=== PATIENT | male | born 1955 | race Caucasian/White ===

== ENCOUNTER → 2018-02-23 08:08 | Outpatient (CLI) | payer OTHER, SELFPAY ==
[2018-02-23 09:38] LABS: Anion Gap 6 (5-15); BUN 22 mg/dL (7-18); BUN/Creat Ratio 20.4 RATIO (10-20); Calcium,Total 8.4 mg/dL (8.5-10.1); Chloride 109 mmol/L (98-107); Cholesterol 210 mg/dL (200); Creatinine, Serum 1.08 mg/dL (0.70-1.30); EST Glomerular Filtration Rate 73 mL/min (>60); Est Glom Filt Rate - Afr Amer 88 mL/min (>60); Glucose 130 mg/dL (74-106); High Density Lipoprotein 43 mg/dL; PSA,Total - Annual Screen 1.96 ng/mL (0.00-4.00); Sodium Level 142 mmol/L (136-145); Triglycerides 120 mg/dL; Very Low Density Lipoprotein 24 mg/dL (5-40)
[2018-02-23 09:51] LABS: Hemoglobin A1c 6.7 % (4.2-6.3)
== END ==
PROVIDERS: Family Provider Family Medicine; PCP Family Medicine; Visit Provider Family Medicine
DX: E11.9 Type 2 diabetes mellitus without complications (principal); E78.00 Pure hypercholesterolemia, unspecified; Z12.5 Encounter for screening for malignant neoplasm of prostate
CPT/HCPCS: 36415; 80048; 80061; 83036; 84153; G0103

== ENCOUNTER → 2018-08-02 10:35 | Outpatient (CLI) | payer OTHER, SELFPAY ==
--- NOTE | 2018-08-02 10:35 | COLBX_PTH ---
PATIENT: YVAN ACUÑA LOC: [facility] U#:[id number] AGE/SX: 70/M ROOM: RE08/02/[address]: Dr. Eddie Hester MD : 1955 BED: DIS: SPEC #: [id number] RECD: 08/02/18 15:29 STATUS: DANITZA REJacinda #: [id number] DAVIN: 08/02/18 10:[address]: Eddie Hester DEPT: SURGICAL PATHOLOGY RECD BY: Bhavesh Carranza ENTERED: 08/05/18 10:28 SP TYPE: COLON BX OTHR DR: Dr. Donovan Fang MD [facility] Tissues: Rectum, NOS Procedures: Surgery Specimen Level IV HEADER OPERATION: Colonoscopy with polypectomy PRE-OP DIAGNOSIS: Screening colonoscopy TISSUE SUBMITTED: Rectal polyp, rule out adenoma MICROSCOPIC DIAGNOSIS Rectal polyp, biopsy: Tubular adenoma. AM:car 08/06/18 MICROSCOPIC DESCRIPTION Slides are reviewed. GROSS DESCRIPTION Received in fixative is one container labeled with the patient's name and designated rectal polyp. The specimen consists of one irregular fragment of light orantes soft tissue that measures 0.4 x 0.3 x 0.1 cm. The specimen is totally submitted in one cassette. / SJ:car 08/05/18 TC:5 CPT: 33086
== END ==
PROVIDERS: Family Provider Family Medicine; PCP Family Medicine; Visit Provider Internal Medicine Gastroenterology
DX: K62.1 Rectal polyp (principal)
CPT/HCPCS: 88305

== ENCOUNTER → 2018-08-24 07:09 | Outpatient (CLI) | payer OTHER, SELFPAY ==
[2018-08-24 09:14] LABS: Anion Gap 5 (5-15); BUN 16 mg/dL (7-18); BUN/Creat Ratio 15.5 RATIO (10-20); Calcium,Total 8.4 mg/dL (8.5-10.1); Chloride 107 mmol/L (98-107); Cholesterol 195 mg/dL (200); Creatinine, Serum 1.03 mg/dL (0.70-1.30); EST Glomerular Filtration Rate 77 mL/min (>60); Est Glom Filt Rate - Afr Amer 93 mL/min (>60); Glucose 136 mg/dL (74-106); High Density Lipoprotein 37 mg/dL; Potassium 3.9 mmol/L (3.5-5.1); Sodium Level 139 mmol/L (136-145); Triglycerides 145 mg/dL; Very Low Density Lipoprotein 29 mg/dL (5-40)
[2018-08-24 09:21] LABS: Hemoglobin A1c 6.3 % (4.2-6.3)
== END ==
PROVIDERS: Family Provider Family Medicine; PCP Family Medicine; Referring Provider Family Medicine; Visit Provider Family Medicine
DX: E11.9 Type 2 diabetes mellitus without complications (principal); E78.00 Pure hypercholesterolemia, unspecified
CPT/HCPCS: 36415; 80048; 80061; 83036

== ENCOUNTER → 2019-02-21 05:56 | Outpatient (CLI) | payer OTHER, SELFPAY | PROVIDERS: Family Provider Family Medicine; PCP Family Medicine; Visit Provider Family Medicine | DX: E11.9 Type 2 diabetes mellitus without complications (principal); Z12.5 Encounter for screening for malignant neoplasm of prostate ==

== ENCOUNTER → 2019-03-01 07:40 | Outpatient (CLI) | payer OTHER, SELFPAY ==
[2019-03-01 08:34] LABS: Cholesterol 190 mg/dL (200); Glucose 136 mg/dL (74-106); High Density Lipoprotein 46 mg/dL; PSA,Total - Annual Screen 2.41 ng/mL (0.00-4.00); Triglycerides 100 mg/dL; Very Low Density Lipoprotein 20 mg/dL (5-40)
[2019-03-01 08:57] LABS: Hemoglobin A1c 7.4 % (4.2-6.3)
== END ==
PROVIDERS: Family Provider Family Medicine; PCP Family Medicine; Referring Provider Family Medicine; Visit Provider Family Medicine
DX: E11.9 Type 2 diabetes mellitus without complications (principal); Z12.5 Encounter for screening for malignant neoplasm of prostate
CPT/HCPCS: 36415; 80061; 82947; 83036; 84153; G0103

== ENCOUNTER → 2020-05-31 07:23 | Outpatient (CLI) | payer OTHER, SELFPAY ==
[2020-05-31 08:47] LABS: Microalbumin,Random Urine 12.4 mg/L (NO RANGE EST.); Microalbumin:Creatinine Ratio 7.1 mg/g CRE (<30 mg/g CRE)
[2020-05-31 08:52] LABS: Hemoglobin A1c 8.4 % (3.8-5.6)
[2020-05-31 09:01] LABS: ALB/GLOB Ratio 1.4 RATIO (0.9-2.4); AST(SGOT) 24 U/L (15-37); Alanine Aminotransfer ALT/SGPT 30 U/L (16-61); Albumin, Serum 3.8 g/dL (3.2-5.0); Alkaline Phosphatase 59 U/L (45-117); Anion Gap 5 (5-15); BUN 28 mg/dL (7-18); BUN/Creat Ratio 25.7 RATIO (10-20); Calcium,Total 8.4 mg/dL (8.5-10.1); Chloride 102 mmol/L (98-107); Cholesterol 192 mg/dL (200); Creatinine, Serum 1.09 mg/dL (0.70-1.30); EST Glomerular Filtration Rate 72 mL/min (>60); Est Glom Filt Rate - Afr Amer 87 mL/min (>60); Globulin 2.8 g/dL (2.2-4.2); Glucose 184 mg/dL (74-106); High Density Lipoprotein 53 mg/dL; PSA,Total - Annual Screen 2.24 ng/mL (0.00-4.00); Potassium 3.7 mmol/L (3.5-5.1); Protein, Total 6.6 g/dL (6.4-8.2); Sodium Level 135 mmol/L (136-145); Triglycerides 89 mg/dL; Very Low Density Lipoprotein 18 mg/dL (5-40)
== END ==
PROVIDERS: PCP Family Medicine; Referring Provider Family Medicine; Visit Provider Family Medicine
DX: E11.9 Type 2 diabetes mellitus without complications (principal); Z12.5 Encounter for screening for malignant neoplasm of prostate
CPT/HCPCS: 36415; 80053; 80061; 82043; 82570; 83036; 84153; G0103

== ENCOUNTER → 2020-11-16 15:13 | Outpatient (CLI) | payer OTHER, SELFPAY | PROVIDERS: PCP Family Medicine; Referring Provider Otolaryngology Otolaryngology/Facial Plastic Surgery; Visit Provider Otolaryngology Otolaryngology/Facial Plastic Surgery | DX: J32.9 Chronic sinusitis, unspecified (principal) | CPT/HCPCS: 87070; 87205 ==

== ENCOUNTER → 2021-06-08 07:33 | Outpatient (CLI) | payer OTHER, SELFPAY ==
[2021-06-08 07:54] LABS: Absolute Lymphocyte Count 2.21 X10^3/uL (0.83-4.51); Absolute Neutrophil Count 2.8 X10^3/uL (2.0-7.7); Basophil# 0.04 X10^3/uL; Basophil% 0.7 % (0-1); Eosinophil# 0.28 X10^3/uL; Eosinophils% 4.7 % (0-5); Hematocrit 46.2 % (40-54); Hemoglobin 15.8 g/dL (13.0-16.5); Lymphocyte # 2.21 X10^3/ul (0.83-4.51); Mean Corp Hgb Conc 34.2 g/dL (32-36); Mean Corpuscular Hgb 30.1 pg (27.0-32.0); Mean Platelet Vol. 10.4 fl (6.2-12.0); Monocyte# 0.65 X10^3/uL; Monocyte% 10.9 % (0-10); NRBC Flagged by Analyzer 0 % (0-5); Neutrophil # 2.76 X10^3/uL (2.7-7.7); Neutrophil % 46.2 % (47-70); Platelet Count 179 K/mm3 (150-450); RBC Distribution Width CV 12.4 % (11.6-14.6); RBC Distribution Width SD 40.2 fl (35.1-43.9); Red Blood Count 5.25 M/mm3 (4.6-6.2)
[2021-06-08 08:20] LABS: Microalbumin,Random Urine 9.7 mg/L (NO RANGE EST.); Microalbumin:Creatinine Ratio 9.2 mg/g CRE (<30 mg/g CRE)
[2021-06-08 08:26] LABS: AST(SGOT) 32 U/L (15-37); Alanine Aminotransfer ALT/SGPT 28 U/L (16-61); Albumin, Serum 3.6 g/dL (3.2-5.0); Alkaline Phosphatase 61 U/L (45-117); Anion Gap 7 (5-15); BUN 28 mg/dL (7-18); BUN/Creat Ratio 28.6 RATIO (10-20); Calcium,Total 8.4 mg/dL (8.5-10.1); Chloride 107 mmol/L (98-107); Creatinine, Serum 0.98 mg/dL (0.70-1.30); EST Glomerular Filtration Rate 81 mL/min (>60); Est Glom Filt Rate - Afr Amer 98 mL/min (>60); Globulin 3.6 g/dL (2.2-4.2); Glucose 138 mg/dL (74-106); PSA,Total - Annual Screen 2.65 ng/mL (0.00-4.00); Potassium 3.9 mmol/L (3.5-5.1); Protein, Total 7.2 g/dL (6.4-8.2); Sodium Level 137 mmol/L (136-145)
[2021-06-08 08:29] LABS: Hemoglobin A1c 8.7 % (3.8-5.6)
[2021-06-08 08:49] LABS: Vitamin B12 502 pg/mL (211-911)
== END ==
PROVIDERS: PCP Family Medicine; Referring Provider Family Medicine; Visit Provider Family Medicine
DX: E11.65 Type 2 diabetes mellitus with hyperglycemia (principal); Z12.5 Encounter for screening for malignant neoplasm of prostate
CPT/HCPCS: 36415; 80053; 82043; 82570; 82607; 83036; 84153; 85025; G0103

== ENCOUNTER → 2021-09-21 08:45 | Outpatient (CLI) | payer OTHER, SELFPAY ==
[2021-09-21 11:25] LABS: Anion Gap 5 (5-15); BUN 35 mg/dL (7-18); BUN/Creat Ratio 32.4 RATIO (10-20); Calcium,Total 9.2 mg/dL (8.5-10.1); Chloride 108 mmol/L (98-107); Cholesterol 248 mg/dL (200); Creatinine, Serum 1.08 mg/dL (0.70-1.30); EST Glomerular Filtration Rate 72 mL/min (>60); Est Glom Filt Rate - Afr Amer 87 mL/min (>60); Glucose 129 mg/dL (74-106); High Density Lipoprotein 50 mg/dL; Potassium 4.3 mmol/L (3.5-5.1); Sodium Level 140 mmol/L (136-145); Triglycerides 136 mg/dL; Very Low Density Lipoprotein 27 mg/dL (5-40)
== END ==
PROVIDERS: PCP Family Medicine; Referring Provider Family Medicine; Visit Provider Family Medicine
DX: E11.65 Type 2 diabetes mellitus with hyperglycemia (principal)
CPT/HCPCS: 36415; 80048; 80061

== ENCOUNTER 2021-12-28 07:08 | Outpatient (CLI) | payer OTHER, SELFPAY ==
[2021-12-28 07:52] LABS: Microalbumin,Random Urine 9.1 mg/L (NO RANGE EST.); Microalbumin:Creatinine Ratio 8.2 mg/g CRE (<30 mg/g CRE)
[2021-12-28 07:56] LABS: ALB/GLOB Ratio 1.2 RATIO (0.9-2.4); AST(SGOT) 17 U/L (15-37); Alanine Aminotransfer ALT/SGPT 22 U/L (16-61); Albumin, Serum 3.7 g/dL (3.2-5.0); Alkaline Phosphatase 47 U/L (45-117); Anion Gap 6 (5-15); BUN 27 mg/dL (7-18); BUN/Creat Ratio 23.7 RATIO (10-20); Calcium,Total 8.5 mg/dL (8.5-10.1); Chloride 106 mmol/L (98-107); Cholesterol 218 mg/dL (200); Creatinine, Serum 1.14 mg/dL (0.70-1.30); EST Glomerular Filtration Rate 68 mL/min (>60); Est Glom Filt Rate - Afr Amer 82 mL/min (>60); Globulin 3.2 g/dL (2.2-4.2); Glucose 103 mg/dL (74-106); High Density Lipoprotein 53 mg/dL; Potassium 4.2 mmol/L (3.5-5.1); Protein, Total 6.9 g/dL (6.4-8.2); Sodium Level 139 mmol/L (136-145); Triglycerides 93 mg/dL; Very Low Density Lipoprotein 19 mg/dL (5-40)
[2021-12-28 08:21] LABS: Hemoglobin A1c 6.2 % (3.8-5.6)
== END 2021-12-28 23:59 | disposition home or self-care (01) ==
LOC: LAB 07:09
PROVIDERS: PCP Family Medicine; Referring Provider Family Medicine; Visit Provider Family Medicine
DX: Z00.00 Encounter for general adult medical examination without abnormal findings (principal)
CPT/HCPCS: 36415; 80053; 80061; 82043; 82570; 83036

== ENCOUNTER → 2022-10-03 | Outpatient (CLI) | payer OTHER, SELFPAY ==
--- NOTE | 2022-10-03 07:15 | US_ITS ---
EXAM: US ABDOMEN COMPLETE CLINICAL INDICATION: PANCREATIC MASS - imaging done at outside facility in [place]. No comps available TECHNIQUE: Real-time ultrasound of the abdomen with image documentation. This report was created using [facility] report generation technology. COMPARISON: None. FINDINGS: LIVER: Normal. There is normal echotexture. No focal hepatic lesion. No intrahepatic biliary ductal dilation. GALLBLADDER: The 2.2 cm stone noted within the gallbladder. No gallbladder wall thickening is demonstrated. No pericholecystic fluid. Negative sonographic Mak''s sign. COMMON BILE DUCT: Unremarkable as visualized. The proximal common bile duct is within normal limits for the patient''s age. PANCREAS: Pancreas is obscured by overlying bowel gas. KIDNEYS: Small bilateral renal cysts. There is no hydronephrosis. No shadowing calculus. SPLEEN: Normal. The spleen is normal in size and homogeneous in echotexture. AORTA: Normal. Submitted longitudinal images of the intra-abdominal aorta demonstrate no gross abnormalities and are unremarkable. INFERIOR VENA CAVA: Normal. The IVC is patent. FREE FLUID: There is no free fluid. US/Abdomen Complete IMPRESSION: 1. Cholelithiasis. 2. Pancreas not well seen. Recommend additional CT or MRI imaging for further evaluation. Electronically Signed: Elvin Damon MD at 8:47 EST ,
== END | disposition home or self-care (01) ==
LOC: US 07:14
PROVIDERS: PCP Family Medicine; Referring Provider Family Medicine; Visit Provider Family Medicine
DX: K86.89 Other specified diseases of pancreas (principal)
CPT/HCPCS: 76700

== ENCOUNTER → 2023-02-28 | Outpatient (CLI) | payer OTHER, SELFPAY ==
[2023-02-28 08:58] LABS: Anion Gap 4 (5-15); BUN 21 mg/dL (7-18); BUN/Creat Ratio 23.3 RATIO (10-20); Calcium,Total 8.4 mg/dL (8.5-10.1); Chloride 110 mmol/L (98-107); Cholesterol 162 mg/dL (200); EST Glomerular Filtration Rate 88 mL/min (>60); Est Glom Filt Rate - Afr Amer 107 mL/min (>60); Glucose 104 mg/dL (74-106); High Density Lipoprotein 45 mg/dL; Potassium 3.7 mmol/L (3.5-5.1); Sodium Level 138 mmol/L (136-145); Triglycerides 108 mg/dL; Very Low Density Lipoprotein 22 mg/dL (5-40)
[2023-02-28 09:14] LABS: Microalbumin,Random Urine 9.8 mg/L (NO RANGE EST.)
== END | disposition home or self-care (01) ==
PROVIDERS: PCP Family Medicine; Referring Provider Family Medicine; Visit Provider Family Medicine
DX: E11.65 Type 2 diabetes mellitus with hyperglycemia (principal)
CPT/HCPCS: 36415; 80048; 80061; 82043

== ENCOUNTER → 2023-09-22 | Outpatient (CLI) | payer OTHER, SELFPAY ==
[2023-09-22 11:02] LABS: Hemoglobin A1c 6.1 % (3.8-5.6)
[2023-09-22 11:41] LABS: AST(SGOT) 20 U/L (15-37); Alanine Aminotransfer ALT/SGPT 28 U/L (16-61); Albumin, Serum 3.7 g/dL (3.2-5.0); Alkaline Phosphatase 54 U/L (45-117); Amylase 90 U/L (25-115); Anion Gap 4 (5-15); BUN 22 mg/dL (7-18); BUN/Creat Ratio 17.9 RATIO (10-20); Calcium,Total 9.1 mg/dL (8.5-10.1); Chloride 109 mmol/L (98-107); Cholesterol 182 mg/dL (200); Creatinine, Serum 1.23 mg/dL (0.70-1.30); EST Glomerular Filtration Rate 62 mL/min (>60); Est Glom Filt Rate - Afr Amer 75 mL/min (>60); Globulin 3.7 g/dL (2.2-4.2); Glucose 103 mg/dL (74-106); High Density Lipoprotein 51 mg/dL; Lipase 28 U/L (13-75); PSA,Total - Annual Screen 4.05 ng/mL (0.00-4.00); Potassium 4.1 mmol/L (3.5-5.1); Protein, Total 7.4 g/dL (6.4-8.2); Sodium Level 140 mmol/L (136-145); Triglycerides 73 mg/dL; Very Low Density Lipoprotein 15 mg/dL (5-40)
== END | disposition home or self-care (01) ==
LOC: LAB 09:43
PROVIDERS: PCP Family Medicine; Visit Provider Family Medicine
DX: K86.89 Other specified diseases of pancreas (principal); E11.65 Type 2 diabetes mellitus with hyperglycemia; Z12.5 Encounter for screening for malignant neoplasm of prostate; E78.5 Hyperlipidemia, unspecified
CPT/HCPCS: 36415; 80053; 80061; 82150; 83036; 83690; 84153; G0103

== ENCOUNTER → 2024-04-09 | Outpatient (CLI) | payer OTHER, SELFPAY ==
[2024-04-09 10:47] LABS: ALB/GLOB Ratio 1.1 RATIO (0.9-2.4); AST(SGOT) 17 U/L (15-37); Alanine Aminotransfer ALT/SGPT 25 U/L (16-61); Albumin, Serum 3.7 g/dL (3.2-5.0); Alkaline Phosphatase 52 U/L (45-117); Anion Gap 4 (5-15); BUN 26 mg/dL (7-18); BUN/Creat Ratio 24.5 RATIO (10-20); Calcium,Total 8.9 mg/dL (8.5-10.1); Chloride 111 mmol/L (98-107); Cholesterol 173 mg/dL (200); Creatinine, Serum 1.06 mg/dL (0.70-1.30); EST Glomerular Filtration Rate 73 mL/min (>60); Est Glom Filt Rate - Afr Amer 89 mL/min (>60); Globulin 3.3 g/dL (2.2-4.2); Glucose 142 mg/dL (74-106); High Density Lipoprotein 52 mg/dL; Potassium 4.1 mmol/L (3.5-5.1); Sodium Level 139 mmol/L (136-145); Triglycerides 104 mg/dL; Very Low Density Lipoprotein 21 mg/dL (5-40)
== END | disposition home or self-care (01) ==
LOC: MFPLAB 08:23
PROVIDERS: PCP Family Medicine; Visit Provider Family Medicine
DX: E11.65 Type 2 diabetes mellitus with hyperglycemia (principal)
CPT/HCPCS: 36415; 80053; 80061

== ENCOUNTER → 2024-08-08 | Outpatient (CLI) | payer OTHER, SELFPAY ==
[2024-08-09 08:12] LABS: PSA, Free 0.69 ng/mL; PSA, Free % 24.6 % (.)
== END | disposition home or self-care (01) ==
LOC: LAB 08:01
PROVIDERS: PCP Family Medicine; Referring Provider Urology; Visit Provider Urology
DX: R97.20 Elevated prostate specific antigen [PSA] (principal)
CPT/HCPCS: 36415; 84153; 84154

== ENCOUNTER → 2024-10-28 | Outpatient (CLI) | payer OTHER, SELFPAY ==
[2024-10-28 08:26] LABS: ALB/GLOB Ratio 0.9 RATIO (0.9-2.4); AST(SGOT) 20 U/L (15-37); Alanine Aminotransfer ALT/SGPT 27 U/L (16-61); Albumin, Serum 3.5 g/dL (3.2-5.0); Alkaline Phosphatase 57 U/L (45-117); Anion Gap 5 (5-15); BUN 29 mg/dL (7-18); Calcium,Total 8.8 mg/dL (8.5-10.1); Chloride 110 mmol/L (98-107); Cholesterol 214 mg/dL (200); Creatinine, Serum 1.26 mg/dL (0.70-1.30); EST Glomerular Filtration Rate 60 mL/min (>60); Est Glom Filt Rate - Afr Amer 73 mL/min (>60); Globulin 3.7 g/dL (2.2-4.2); Glucose 93 mg/dL (74-106); High Density Lipoprotein 52 mg/dL; Protein, Total 7.2 g/dL (6.4-8.2); Sodium Level 141 mmol/L (136-145); Triglycerides 109 mg/dL; Very Low Density Lipoprotein 22 mg/dL (5-40)
== END | disposition home or self-care (01) ==
LOC: LAB 07:24
PROVIDERS: PCP Family Medicine; Referring Provider Family Medicine; Visit Provider Family Medicine
DX: E11.65 Type 2 diabetes mellitus with hyperglycemia (principal)
CPT/HCPCS: 36415; 80053; 80061

== ENCOUNTER → 2025-03-16 | Outpatient (CLI) | payer OTHER, SELFPAY | END | disposition home or self-care (01) | LOC: LABSPEC 07:45 | PROVIDERS: PCP Family Medicine; Visit Provider Nurse Practitioner Family | DX: L03.90 Cellulitis, unspecified (principal) | CPT/HCPCS: 87070; 87077; 87186; 87205 ==

== ENCOUNTER → 2025-04-09 | Outpatient (CLI) | payer OTHER, SELFPAY ==
[2025-04-09 10:54] LABS: Anion Gap 11 (5-15); BUN 28 mg/dL (4-19); BUN/Creat Ratio 26.2 RATIO (10-20); Calcium,Total 8.7 mg/dL (7.6-11.0); Carbon Dioxide 23.7 mmol/L (21.0-32.0); Chloride 106 mmol/L (98-108); Cholesterol 136 mg/dL (<=200); Creatinine, Serum 1.06 mg/dL (0.70-1.20); EST Glomerular Filtration Rate 75 (>60); Glucose 94 mg/dL (70-99); High Density Lipoprotein 46 mg/dL; Low Density Lipoprotein Calc. 73 mg/dL; Sodium Level 140 mmol/L (133-145); Triglycerides 85 mg/dL; Very Low Density Lipoprotein 17 mg/dL (5-40); cholesterol:hdl ratio screen 2.96
[2025-04-09 11:00] LABS: Microalbumin,Random Urine < 12.0 mg/L (NO RANGE EST.); Microalbumin:Creatinine Ratio UNABLE TO CALCULATE mg/g CRE
== END | disposition home or self-care (01) ==
LOC: MTLAB 07:26
PROVIDERS: PCP Family Medicine; Referring Provider Family Medicine; Visit Provider Family Medicine
DX: E11.65 Type 2 diabetes mellitus with hyperglycemia (principal)
CPT/HCPCS: 36415; 80048; 80061; 82043; 82570; 83036

== ENCOUNTER → 2025-10-06 | Outpatient (CLI) | payer OTHER, SELFPAY ==
--- OUTSIDE RECORDS SUMMARY | 2025-10-06 07:55 | XMS RPT_ITS | CCD ---
Author Organization [facility] CliniSysd Care Team Providers Care Farm Management Teacher Name Role Phone Ahmet Becker MD Primary Care Provider [phone] AHMET BECKER Primary Care Unavailable SERGIO CELAYA Referring Unavailable Ahmet Becker MD Primary Care Provider [phone] Ahmet Becker MD Primary Care Provider SERGIO CELAYA Attending Unavailable AHMET BECKER Primary Care Unavailable SERGIO CELAYA S Attending Unavailable AHMET BECKER Primary Care Unavailable AHMET BECKER Primary Care Unavailable Alee ROMAN Referring Unavailable Alee ROMAN Attending Unavailable AHMET BECKER Primary Care Unavailable SERGIO CELAYA Referring Unavailable Dr. Ahmet Becker MD Primary Care Provider Dr. Ahmet Becker MD Referring Provider Sugar [employer] SALESPERSON-CJeana Attending Provider VANE MOMIN Attending Unavailable Becker, Ahmet Primary Care Unavailable Jeana Wooten Attending Unavailable Becker, Ahmet Referring Unavailable Becker, Ahmet Referring Unavailable Collins Clancy Attending Unavailable Becker, Ahmet Primary Care Unavailable Becker, Ahmet Primary Care Unavailable Jose Palomo Attending Unavailable StaciaJose Referring Unavailable Becker, Ahmet Referring Unavailable Becker, Ahmet Primary Care Unavailable Becker, Ahmet Attending Unavailable Becker, Ahmet Primary Care Unavailable Jeana Wooten Attending Unavailable Becker, Ahmet Primary Care Unavailable Becker, Ahmet Attending Unavailable Becker, Ahmet Referring Unavailable Dr. Ahmet Becker MD Attending Provider [phone] Allergies Allergy Classification Reported Allergen(s) Allergy Type Date of Onset Reaction(s) Facility (9 sources) Pollen; Translations: [POLLENS EXTRACT] Propensity to adverse reactions to drug 09-22-2022 Unknown [facility] (9 sources) Animal Dander; Translations: [ANIMAL DANDER] Propensity to adverse reactions to drug 09-22-2022 Unknown [facility] (9 sources) House Dust Mite; Translations: [HOUSE DUST MITE] Propensity to adverse reactions to drug 09-22-2022 Unknown [facility] Medications Current Medications Medication Drug Class(es) Dates Sig (Normalized) Sig (Original) dapagliflozin 10 mg oral tablet (9 sources) Sodium-Glucose Cotransporter 2 Inhibitor Start: 06-28-2024 take 1 tablet by mouth once daily Dapagliflozin Propanediol (Farxiga) 10 mg tablet Active 10 mg PO daily June 28, 2024 12:00am take 1 tablet by greta th once daily at breakfast dapagliflozin (FARXIGA) 10 mg tablet Edi e by mouth daily with breakfast. 0 Active Comment on above: Take by mouth daily with breakfast. 0.5 ml dulaglutide 1.5 mg/ml auto-injector (2 sources) GLP-1 Receptor Agonist Start: 4 Dulaglutide (Trulicity) 0.75 mg/0.5 mL pen injector Active mg SC June 28, 2024 12:00am glipiZIDE er 10 mg 24 hr extended release oral tablet (9 sources) Sulfonylurea Start: 4 take 1 tablet by mouth once daily Glipizide 10 mg tablet extended release 24hr Active 10 mg PO daily June 28, 2024 12:00am take 1 tablet by mouth once say y glipiZIDE XL (GLUCOTROL XL) 10 mg 24 hr tablet Take 10 mg by mouth once daily. 0 Active Comment on above: Take 10 mg by mouth once daily. iv contrast (will be provided with radiology test) (2 sources) Start: 12-05-2022 End: 12-06-2022 iv contrast (will be provided with radiology test) CT ABD/PEL -Inject, intravenously, once for 1 dose.No IV access, insert saline lock prior to the beginning of sedation, infusion, injection of imaging exam. Discontinue saline lock post exam. If Pt. has a central line or IVAD, may access for administration according to line specific nursing protocol. Once exam is complete flush line and de-access according to line specific nursing protocol in the CT contrast administration guidelines link. 1 Each 0 12/05/2022 12/06/2022 Active Start: 10-10-2022 End: 10-11-2022 iv contrast (will be provide d with radiology test) Indications: Pancreatic cyst MRI ABDOMEN Inject, intravenously, once for 1 dose. No IV access, insert saline lock prior to the beginning of sedation, infusion, injection of imaging exam. Discontinue saline lock post exam. If Pt. has a central line or IVAD, may access for administration according to line specific nursing protocol. Once exam is complete flush line and de-access according to line specific nursing protocol in the MR contrast administration guidelines link. 1 Each 0 10/10/2022 10/11/2022 Comment on above: MRI ABDOMEN Inject, intravenously, once for 1 dose. No IV access, insert saline lock prior to the beginning of sedation, infusion, injection of imaging exam. Discontinue saline lock post exam. If Pt. has a central line or IVAD, may access for administration according to line specific nursing protocol. Once exam is complete flush line and de-access according to line specific nursing protocol in the MR contrast administration guidelines link. CT ABD/PEL -Inject, intravenously, once for 1 dose.No IV access, insert saline lock prior to the beginning of sedation, infusion, injection of imaging exam. Discontinue saline lock post exam. If Pt. has a central line or IVAD, may access for administration according to line specific nursing protocol. Once exam is complete flush line and de-access according to line specific nursing protocol in the CT contrast administration guidelines link. LORazepam 0.5 mg oral tablet (1 source) Benzodiazepine Start: 10-23-20 End: 10-24-20 22 take 1 tablet by mouth twice daily LORazepam (ATIVAN) 0.5 mg Indications: Anxiety neurosis Take 1 tablet by mouth twice daily for 2 doses. 2 tablet 0 10/23/2022 10/24/2022 Active Comment on above: Take 1 tablet by greta twice daily for 2 doses. metFORMIN hydrochloride 500 mg oral tablet (12 sources) Biguanide Start: 02-07-20 17 take 1 tablet by mouth three times daily at mealtime Metformin 500 MG tablet Active 500 mg PO 3 TIMES DAILY WITH MEALS February 06, 2017 12:00am take 1 tablet by mouth three nikky es daily metFORMIN ER (GLUMETZA) 500 mg 24 hr tablet Take 500 mg by mouth three times daily. 0 Active Comment on above: Take 500 mg by mouth three times daily. mupirocin 0.02 mg/mg topical ointment (2 sources) RNA Synthetase Inhibitor Antibacterial Start: 03-14-2025 Mupirocin 2 % ointment Active 1 NMA TOPICAL THREE TIMES A DAY March 14, 2025 12:00am Completed/Discontinued Medications Medication Drug Class(es) Dates Sig (Normalized) Sig (Original) amoxicillin 875 mg / clavulanate 125 mg oral tablet (2 sources) Penicillin-class Antibacterial Start: 06-28-2024 End: 07-05-2024 Amoxicillin-Pot Clavulanate 875-125 mg tablet Discontinued 1 {tbl} PO TWICE A DAY 14 June 28, 2024 12:00am July 04, 2024 12:00am July 05, 2024 12:09am cephalexin 500 mg oral capsule (2 sources) Cephalosporin Antibacterial Start: 03-14-2025 End: 03-21-2025 take 1 capsule by mouth twice daily Cephalexin 500 mg capsule Discontinued 500 mg PO TWICE A DAY 14 March 14, 2025 12:00am March 20, 2025 12:00am March 21, 2025 12:10am FREESTYLE MICHELL 14 DAY SENSOR kit (7 sources) Start: 08-11-2022 FREESTYLE MICHELL 14 DAY SENSOR kit as directed. 0 08/11/2022 Active Comment on above: as directed. montelukast 10 mg oral tablet (7 sources) Leukotriene Receptor Antagonist take 1 tablet by mouth once daily at bedtime montelukast (SINGULAIR) 10 mg tablet Take 10 mg by mouth daily at bedtime. 0 Active Comment on above: Take 10 mg by mouth daily at bedtime. predniSONE 20 mg oral tablet (2 sources) Start: 03-14-2025 End: 03-17-2025 take 2 tablets by mouth once daily at mealtime Prednisone 20 mg tablet Discontinued 40 mg PO DAILY 04 14March 14, 2025 12:00am March 16, 2025 12:00am March 17, 2025 12:07am take with food rosuvastatin calcium 10 mg oral tablet (7 sources) HMG-CoA Reductase Inhibitor take 1 tablet by mouth once daily rosuvastatin (CRESTOR) 10 mg tablet Take 10 mg by mouth once daily. 0 Active Comment on above: Take 10 mg by mouth once daily. 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 Diabetes mellitus with complications (3 sources) Type 2 diabetes mellitus; Translations: [Type 2 diabetes mellitus with other specified complication] Onset: 09-22-2022 Chronic Diabetes mellitus without complication (7 sources) Diabetes mellitus; Translations: [Type 2 diabetes mellitus without complications] Onset: 09-22-2022 09-22-2022 Chronic Disorders of lipid metabolism (9 sources) Hypercholesterolemia; Translations: [Pure hypercholesterolemia, unspecified] Onset: 09-22-2022 09-22-2022 Chronic E Codes: Natural/environment (1 source) Bitten by dog, initial encounter; Translations: [Bitten by dog, initial encounter] Onset: 03-28-2025 Episodic Immunizations and screening for infectious disease (1 source) Encounter for immunization; Translations: [Encounter for immunization] Onset: 03-28-2025 Episodic Osteoarthritis (7 sources) Osteoarthritis of multiple joints ; Translations: [Polyosteoarthritis, unspecified] Onset: 09-22-2022 09-22-2022 Chronic Other upper respiratory infections (4 sources) Sinusitis; Translations: [Chronic sinusitis, unspecified] 06-28-2024 Chronic Skin and subcutaneous tissue infections (9 sources) Cellulitis; Translations: [Cellulitis, unspecified] Onset: 03-19-2025 03-14-2025 Episodic Unclassified (1 source) Bitten by dog, initial encounter Onset: 03-28-2025 Unclassified (1 source) Encounter for immunization Onset: 03-28-2025 Past or Other Problems Problem Classification Problem Date Documented Da te Episodic/Chronic Other screening for suspected conditions (not mental disorders or infectious disease) (1 source) Elevated prostate specific antigen [PSA]; Translations: [Elevated prostate specific antigen [PSA]] Onset: 09-01-2024 Episodic Pancreatic disorders (not diabetes) (13 sources) Cyst of pancreas; Translations: [Cyst of pancreas] Onset: 09-22-2022 Episodic Results Test Name Value Interpretation Reference Range Facility Anion gap in Serum or Plasma Ordered By: Ahmet Becker on 04-09-2025 Anion gap [Moles/Vol] 11 mmol/L 5-15 [facility] BUN/creatinine ratioOrdered By: Ahmet Becker on 04-09-2025 Urea nitrogen/Creatinine [Mass ratio] 26.2 mg/mg High 10- [facility] Basic Metabolic Profile (BMP )on 04-09-2025 BUN/CRE 26.2 RATIO High - [facility] Comment on above: Order Comment: Order Date: 04/08/25 Order Info: [id number] - BMP Order Info: - LIPID Performed By: #### L 500.4100, L500.2500, [id number] #### [facility] [address] [place], [address] Calcium [Mass/Vol] 8.7 mg/dL Normal 7.6-11.0 [facility] Comment on above: Order Comment: Order Date: 04/08/25 Order Info: [id number] - BMP Order Info: [id number] - LIPID Performed By: #### L 500.4100, L500.2500, [id number] #### [facility] [address] [place], [address] Chloride [Moles/Vol] 106 mmol/L Normal 98-108 [facility] Comment on above: Order Comment: Order Date: 04/08/25 Order Info: 06 - BMP Order Info: [id number] - LIPID Performed By: #### L 500.4100, L500.2500, [id number] #### [facility] [address] [place], [address] CO2 [Moles/Vol] 23.7 mmol/L Normal 21.0-32.0 [facility] Comment on above: Order Comment: Order Date: 04/08/25 Order Info: 06 - BMP Order Info: [id number] - LIPID Performed By: #### L 500.4100, L500.2500, [id number] #### [facility] [address] [place], [address] Creatinine [Mass/Vol] 1.06 mg/dL Normal 0.70-1.20 [facility] Comment on above: Order Comment: Order Date: 04/08/25 Order Info: [id number] - BMP Order Info: [id number] - LIPID Performed By: #### L 500.4100, L500.2500, [id number] #### [facility] [address] [place], [address] GAP 11 Normal 5-15 [facility] Comment on above: Order Comment: Order Date: 04/08/25 Order Info: 0667- - BMP Order Info: [id number] - LIPID Performed By: #### L 500.4100, L500.2500, [id number] #### [facility] [address] [place], [address] GFR/1.73 sq M.predicted among non-blacks MDRD (S/P/Bld) [Vol rate/Area] 75 mL/min/{1.73_m2} Normal >60 [facility] Comment on above: Order Comment: Order Date: 04/08/25 Order Info: 0667- - BMP Order Info: [id number] - LIPID Result Comment: mL/m in/1.73m2 CKD-EPI Creatinine Equation (2020) Performed By: #### L 500.4100, L500.2500, [id number] #### [facility] [address] [place], [address] Glucose [Mass/Vol] 94 mg/dL Normal 70-99 [facility] Comment on above: Order Comment: Order Date: 04/08/25 Order Info: [id number] - BMP Order Info: [id number] - LIPID Performed By: #### L 500.4100, L500.2500, [id number] #### [facility] [address] [place], [address] Potassium [Moles/Vol] 4.0 mmol/L Normal 3.3-5.1 [facility] Comment on above: Order Comment: Order Date: 04/08/25 Order Info: [id number] - BMP Order Info: [id number] - LIPID Performed By: #### L 500.4100, L500.2500, [id number] #### [facility] [address] [place], [address] Sodium [Moles/Vol] 140 mmol/L Normal 133-145 [facility] Comment on above: Order Comment: Order Date: 04/08/25 Order Info: [id number] - BMP Order Info: [id number] - LIPID Performed By: #### L 500.4100, L500.2500, [id number] #### [facility] [address] [place], [address] Urea nitrogen [Mass/Vol] 28 mg/dL High 4-19 [facility] Comment on above: Order Comment: Order Date: 04/08/25 Order Info: [id number] - [facility] Order Info: [id number] - LIPID Performed By: #### L 500.4100, L500.2500, [id number] #### [facility] [address] [place], [address] Calculated very low density lipoprotein (VLDL) cholesterol measurementOrdered By: Ahmet Becker on 04-09-2025 Calculated very low density lipoprotein (VLDL) cholesterol measurement 17 mg/dL 5-40 [facility] Carbon dioxide, total [Moles /volume] in Central venous bloodOrdered By: Ahmet Becker on 04-09-2025 CO2 [Moles/Vol] 23.7 mmol/L 21.0-32.0 [facility] Chloride assayOrdered By: Debbie Becker on 04-09-2025 Chloride [Moles/Vol] 106 mmol/L 98-108 [facility] Glomerular filtration rate ( GFR) estimation/1.73 sq m using serum, plasma, or whole bOrdered By: Ahmet Becker on 04-09-2025 GFR/1.73 sq M.predicted among non-blacks MDRD (S/P/Bld) [Vol rate/Area] 75 mL/min/{1.73_m2} >60 [facility] Comment on above: mL/min/1.73m2 CKD-EP I Creatinine Equation (2020) Hemoglobin A1con 04-09-2025 HbA1c (Bld) [Mass fraction] 7.0 % High <=5.6 [facility] Comment on above: Order Comment: Order Date: 04/08/25 Order Info: [id number] - A1C Result Comment: Norm al < 5.7 % Prediabetic 5.7 - 6.4 % Diabetic >or= 6.5 % Please note range changes. Performed By: #### L 500.4100, L500.2500, L501.9985 #### [facility] [address] [place], [address] Hemoglobin A1c percentageOrd ered By: Ahmet Becker on 04-09-2025 HbA1c (Bld) [Mass fraction] 7.0 % High <5.7 [facility] Comment on above: Normal < 5.7 % Predi abetic 5.7 - 6.4 % Diabetic >or= 6.5 % Please note range changes. LDL calc ser/plasOrdered By: Ahmet Becker on 04-09-2025 Cholesterol in LDL [Mass/Vol] 73 mg/dL [facility] Comment on above: Fayiizfebf=278-235 m g/dL & Higher Zibo=172 mg/dL or greater Lipid Profileon 04-09-2025 CHOL:HDL 2.96 Normal [facility] Comment on above: Order Comment: Order Date: 04/08/25 Order Info: [id number] - BMP Order Info: [id number] - LIPID Performed By: #### L 500.4100, L500.2500, [id number] #### [facility] [address] [place], [address] Cholesterol [Mass/Vol] 136 mg/dL Normal <=200 [facility] Comment on above: Order Comment: Order Date: 04/08/25 Order Info: [id number] - BMP Order Info: [id number] - LIPID Result Comment: Chol esterol level, Desirable <200 mg/dL Borderline high cholesterol 200-239 mg/dL High cholesterol >=240 mg/dL Recommendations of the NCEP Adult Treatment Panel for the following risk-cutoff thresholds for the [place] population. Performed By: #### L 500.4100, L500.2500, L501.9985 #### [facility] [address] [place], [address] Cholesterol in HDL [Mass/Vol] 46 mg/dL Normal [facility] Comment on above: Order Comment: Order Date: 04/08/25 Order Info: [id number] - BMP Order Info: [id number] - LIPID Result Comment: Natalie onal Cholesterol Education Program (NCEP) guidelines: <40 mg/dL: Low HDL-cholesterol (major risk factor for CHD) >= 60 mg/dL: High HDL-cholesterol (negative risk factor for CHD) HDL-cholesterol is affected by a number of factors, e.g. smoking, exercise, hormones, sex and age. Performed By: #### L 500.4100, L500.2500, [id number] #### [facility] [address] [place], [address] Cholesterol in LDL [Mass/Vol] 73 mg/dL Normal [facility] Comment on above: Order Comment: Order Date: 04/08/25 Order Info: 0667-1 - BMP Order Info: [id number] - LIPID Result Comment: Bord qshneh=493-239 mg/dL Higher Vzto=953 mg/dL or greater Performed By: #### L 500.4100, L500.2500, [id number] #### [facility] [address] [place], [address] Cholesterol in VLDL [Mass/Vol] 17 mg/dL Normal 5-40 [facility] Comment on above: Order Comment: Order Date: 04/08/25 Order Info: [id number] - BMP Order Info: [id number] - LIPID Performed By: #### L 500.4100, L500.2500, [id number] #### [facility] [address] [place], [address] Triglyceride [Mass/Vol] 85 mg/dL Normal [facility] Comment on above: Order Comment: Order Date: 04/08/25 Order Info: [id number] - BMP Order Info: [id number] - LIPID Result Comment: The drugs N-Acetylcysteine and Metamizole may falsely depress this assay. Normal range: <150 mg/dL Borderline High: 150-199 mg/dL High: 200-499 mg/dL Very High: >500 mg/dL Performed By: #### L 500.4100, L500.2500, L501.9985 #### [facility] [address] [place], [address] Microalb:Creat Ratio,Random URon 04-09-2025 Creatinine [Mass/Vol] 160.00 mg/dL Normal 39.00-259.00 [facility] Comment on above: Order Comment: Order Date: 04/08/25 Order Info: [id number] - MIALB Performed By: #### L 502.0250 #### [facility] [address] [place], [address] MALB:CREAT UNABLE TO CALCULATE Normal [facility] Comment on above: Order Comment: Order Date: 04/08/25 Order Info: [id number] - MIALB Performed By: #### L 502.0250 #### [facility] [address] [place], [address] MICROALBUMIN,UR < 12.0 Normal NO RANGE EST. [facility] Comment on above: Order Comment: Order Date: 04/08/25 Order Info: [id number] - MIALB Performed By: #### L 502.0250 #### [facility] [address] [place], [address] Microalbumin/creat ratio urO rdered By: Ahmet Becker on 04-09-2025 Urine microalbumin/creatini ne ratio measurement UNABLE TO CALCULATE mg/g CRE [facility] Potassium measurement (mass/ volume)Ordered By: Ahmet Becker on 04-09-2025 Potassium (Unsp spec) [Mass/Vol] 4.0 mmol/L 3.3-5.1 [facility] Random urine creatinine matt urement (mass/volume)Ordered By: Ahmet Becker on 04-09-2025 Creatinine Unsp time (U) [Mass/Vol] 160.00 mg/dL 39.00-259.00 [facility] Screening total cholesterol/ high density lipoprotein (HDL) cholesterol ratioOrdered By: Ahmet Becker on 04-09-2025 Cholesterol.total/Cho lesterol in HDL [Mass ratio] 2.96 {ratio} [facility] Serum creatinine measurement (mass/volume)Ordered By: Ahmet Becker on 04-09-2025 Creatinine [Mass/Vol] 1.06 mg/dL 0.70-1.20 [facility] Serum glucose measurement (m ass/volume)Ordered By: Ahmet Becker on 04-09-2025 Glucose [Mass/Vol] 94 mg/dL 70-99 [facility] Serum or plasma calcium matt urement (mass/volume)Ordered By: Ahmet Becker on 04-09-2025 Calcium [Mass/Vol] 8.7 mg/dL 7.6-11.0 [facility] Serum or plasma cholesterol in HDL measurement (mass/volume)Ordered By: Ahmet Becker on 04-09-2025 Cholesterol in HDL [Mass/Vol] 46 mg/dL >40 [facility] Comment on above: National Cholesterol Education Program (NCEP) guidelines:<40 mg/dL: Low HDL-cholesterol (major risk factor for CHD)>= 60 mg/dL: High HDL-cholesterol (negative risk factor for CHD)HDL-cholesterol is affected by a number of factors, e.g. smoking, exercise, hormones, sex and age. Serum or plasma cholesterol measurement (mass/volume)Ordered By: Ahmet Becker on 04-09-2025 Cholesterol [Mass/Vol] 136 mg/dL <201 [facility] Comment on above: Cholesterol level, D esirable <200 mg/dLBorderline high cholesterol 200-239 mg/dLHigh cholesterol >=240 mg/dLRecommendations of the NCEP Adult Treatment Panel for the following risk-cutoff thresholds for the [place] population. Serum or plasma urea nitroge n measurement (mass/volume)Ordered By: Ahmet Becker on 04-09-2025 Urea nitrogen [Mass/Vol] 28 mg/dL High 4-19 [facility] Sodium levelOrdered By: Ahmet Becker on 04-09-2025 Sodium [Moles/Vol] 140 mmol/L 133-145 [facility] Triglycerides measurementOrd ered By: Ahmet Becker on 04-09-2025 Triglyceride [Mass/Vol] 85 mg/dL <199 [facility] Comment on above: The drugs N-Acetylcy steine and Metamizole may falsely depress this assay. Normal range: <150 mg/dLBorderline High: 150-199 mg/dLHigh: 200-499 mg/dLVery High: >500 mg/dL Urine albumin measurement wi th detection limit of 20 mg/L or less (mass/volume)Ordered By: Ahmet Becker on 04-09-2025 Albumin DL <= 20 mg/L (U) [Mass/Vol] < 12.0 mg/L NO RANGE EST. [facility] Wound Cultureon 03-19-2025 WC Pending Staphylococcus aureus Amount Growth Rare Staphylococcus species Staphylococcus species Staphylococcus aureus: REACTION cefOXitin Susc Islt NEG Doxycycline Islt OWEN <=0.5 Clindamycin Islt OWEN R Clindamycin.induced Susc Islt POS Erythromycin Islt OWEN R Gentamicin Islt OWEN <=0.5 S Linezolid Islt OWEN 2 S Moxifloxacin Islt OWEN <=0.25 S Oxacillin Susc Islt 0.5 S Tetracycline Islt OWEN <=1 S TMP SMX Islt OWEN <=10 S Vancomycin Islt OWEN 1 S Staphylococcus species: REACTION cefOXitin Susc Islt NEG Doxycycline Islt OWEN <=0.5 Clindamycin Islt OWEN <=0.12 S Clindamycin.induced Susc Islt NEG Erythromycin Islt OWEN <=0.25 S Gentamicin Islt OWEN <=0.5 S Linezolid Islt OWEN 1 S Oxacillin Susc Islt <=0.25 S Tetracycline Islt OWEN <=1 S TMP SMX Islt OWEN <=10 S Vancomycin Islt OWEN <=0.5 S Normal [facility] Comment on above: Performed By: #### M 100.2000, M100.3000 #### [facility] [place], [address] Gram Stainon 03-16-2025 GS Gram Stain No organisms seen Normal [facility] Comment on above: Performed By: #### M 100.2000, M100.3000 #### [facility] [address] [place], [address] Gram stainOrdered By: Luke Wooten on 03-16-2025 Microscopic observation Gram stain Nom (Unsp spec) [facility] Urgent Care Visit Reporton 0 03-14-2025 Urgent Care Visit Report [facility] [address], [address] [place] [address] OFFICE VISIT Date of Service: 03/14/25 MR#: [id number] Acct: [id number] Name: YVAN FLYNN Rep #: [id number] : 1955 Provider: DAVID Wooten Age/Sex: 69/M Location: [facility] [place] Status: Signed Intake Vital Signs 06/28/24 11:50 03/14/25 10:32 03/14/25 10:47 Height 6 ft 1 in 6 ft 1 in Weight: 205 lb 4 oz BMI 27.1 BP 140/80 H 116/62 Blood Pressure Location Lt brachial Lt brachial Position Sitting Sitting Respiration 16 15 Pulse 111 H 106 H Pulse Source NIBP NIBP Temp 98.7 F 98.0 F Temp Source Temporal Oral Pulse Oximetry (%) 97 96 Oxygen Delivery Method room air room air Intake Visit Reasons: CONCERN FOR POISON LUIS Chief Complaint: rash to right forearm 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 pt believes to be poison luis. denies additional areas of concern. PFSH Social History Smoking Status: Never smoker HPI HPI Chief Complaint: rash to right forearm Details: YVAN FLYNN, is a 69 M who presents to the office today for almost 1 wk ago -was doing some yard work last Sunday- didn't notice the rash until -oozing yellow drainage- surrounding tissue is pink and swollen -has not spread -no pain some itching --tried so far old atb cream he got in the past -no fever or chills -states had something similar to this last year and got really bad ROS Const Constitutional: Positive for other (ROS negative x6 except what was placed in HPI) Exam Const General: cooperative, healthy appearing, comfortable and no acute distress Orientation: alert and oriented x3 Skin Other: -right medial forearm with red raised rash approx size of walnut-yellow crusting noted with scant yellow drainage- cx it - surrounding tissue swollen and more pink- no warmth -cleansed site with normal saline- applied bacitracin oint- and covered with telfa and wrapped with baljit Psych Appearance: grossly normal Mental Status: mental status grossly normal Affect: normal affect Thought Process: normal Thought Content: normal Judgment: judgment good Coding Level of Care Code Off vis,est,level 3 Diagnoses Impetigo L01.00 Cellulitis of right upper extremity L03.113 Site of cellulitis: extremity Site of cellulitis of extremity: upper extremity Laterality: right Assessment and Plan Assessment and Plan (1) Impetigo: Status: Acute Plan: -take meds as prescribed- take full course of atb even if feeling better- discussed indication of meds and possible side effects -keep site covered until drainage stops and crusts over- wash clothing and bedding -Please follow up with your Primary Care Physician for ongoing chronic problems. If symptoms change or worsen, please present to Emergency Room for further evaluation 1. See visit diagnoses, disposition, and orders. 2. Reviewed and updated medication list; Discussed probable diagnosis, test results if available in office today and management options with patient/guardian: agreed to the medical plan above 3. Education provided regarding visit today, see after visit summary. Instruction provided in the use of fluids, vaporizer, acetaminophen, and/or other OTC medication for symptom control. Explained use of antibiotics only for proven or strongly suspected bacterial infections. 4. Prevention and health maintenance with primary care provider. 5. Patient/guardian educated to proceed to ED with worsening of condition, changes, or failure to improve. (2) Cellulitis: Status: Acute Qualifiers: Site of cellulitis: extremity Site of cellulitis of extremity: upper extremity Laterality: right Qualified Code(s): L03.113 - Cellulitis of right upper limb Medications: New prednisone take with food 40 mg (2 x 20 mg) PO DAILY 3 days 6 tabs 0RF mupirocin 2% 1 applic topical TID 22 grams 0RF cephalexin 500 mg PO BID 7 days 14 caps 0RF Clinical Quality Measures Falls Risk Screening/Assistive Devices Have you fallen in the past year?: No 03/14/25 1120 Date Jeana Wooten [employer] SALESPERSON-[employer] Philomenaer Signature: Date (if applicable) CC: Normal [facility] Comprehensive Metabolic Prof ilon 10-28-2024 Albumin [Mass/Vol] 3.5 g/dL Normal 3.2-5.0 [facility] Comment on above: Performed By: #### L 500.4050, L500.4100 #### [facility] [address] [place], [address] Albumin/Globulin [Mass ratio] 0.9 {ratio} Normal 0.9-2.4 [facility] Comment on above: Performed By: #### L 500.4050, L500.4100 #### [facility] [address] [place], [address] ALK P 57 U/L Normal 45-117 [facility] Comment on above: Performed By: #### L 500.4050, L500.4100 #### [facility] [address] [place], [address] ALT [Catalytic activity/Vol] 27 U/L Normal 16-61 [facility] Comment on above: Performed By: #### L 500.4050, L500.4100 #### [facility] [address] [place], [address] AST [Catalytic activity/Vol] 20 U/L Normal 15-37 [facility] Comment on above: Performed By: #### L 500.4050, L500.4100 #### [facility] [address] [place], [address] Bilirubin [Mass/Vol] 0.50 mg/dL Normal 0.20-1.00 [facility] Comment on above: Result Comment: For patients on eltrombopag therapy, use of Dimension Barbeau TBIL is not recommended. Performed By: #### L 500.4050, L500.4100 #### [facility] [address] [place], [address] BUN/CRE 23.0 RATIO High 10-20 [facility] Comment on above: Performed By: #### L 500.4050, L500.4100 #### [facility] [address] [place], [address] CA,Total 8.8 mg/dL Normal 8.5-10.1 [facility] Comment on above: Performed By: #### L 500.4050, L500.4100 #### [facility] [address] [place], [address] Chloride [Moles/Vol] 110 mmol/L High 98-107 [facility] Comment on above: Performed By: #### L 500.4050, L500.4100 #### [facility] [address] [place], [address] CO2 [Moles/Vol] 27.0 mmol/L Normal 21.0-32.0 [facility] Comment on above: Performed By: #### L 500.4050, L500.4100 #### [facility] [address] [place], [address] Creatinine [Mass/Vol] 1.26 mg/dL Normal 0.70-1.30 [facility] Comment on above: Result Comment: The validity of the calculated GFR GFRAA in patients over 70 years has not been determined. Clinical correlation is essential. Performed By: #### L 500.4050, L500.4100 #### [facility] [address] [place], [address] EST GFR - AA 73 mL/min Normal >60 [facility] Comment on above: Result Comment: Afri can Sudanese GFR Calc Performed By: #### L 500.4050, L500.4100 #### [facility] [address] [place], [address] GAP 5 Normal 5-15 [facility] Comment on above: Performed By: #### L 500.4050, L500.4100 #### [facility] [address] [place], [address] GFR/1.73 sq M.predicted among non-blacks MDRD (S/P/Bld) [Vol rate/Area] 60 mL/min/{1.73_m2} Normal >60 [facility] Comment on above: Result Comment: Non- GFR Calc Performed By: #### L 500.4050, L500.4100 #### [facility] [address] [place], [address] Globulin (S) [Mass/Vol] 3.7 g/dL Normal 2.2-4.2 [facility] Comment on above: Performed By: #### L 500.4050, L500.4100 #### [facility] [address] [place], [address] Glucose [Mass/Vol] 93 mg/dL Normal 74-106 [facility] Comment on above: Performed By: #### L 500.4050, L500.4100 #### [facility] [address] [place], [address] Potassium [Moles/Vol] 4.0 mmol/L Normal 3.5-5.1 [facility] Comment on above: Performed By: #### L 500.4050, L500.4100 #### [facility] [address] [place], [address] Sodium [Moles/Vol] 141 mmol/L Normal 136-145 [facility] Comment on above: Performed By: #### L 500.4050, L500.4100 #### [facility] [address] [place], [address] T PROT 7.2 g/dL Normal 6.4-8.2 [facility] Comment on above: Performed By: #### L 500.4050, L500.4100 #### [facility] [address] [place], [address] Urea nitrogen [Mass/Vol] 29 mg/dL High 7-18 [facility] Comment on above: Performed By: #### L 500.4050, L500.4100 #### [facility] [address] [place], [address] Lipid Profileon 10-28-2024 Cholesterol [Mass/Vol] 214 mg/dL High 200 [facility] Comment on above: Result Comment: <200 mg/dL Desirable 200-240 mg/dL Borderline >240 mg/dL High Risk Performed By: #### L 500.4050, L500.4100 #### [facility] [address] [place], [address] Cholesterol in HDL [Mass/Vol] 52 mg/dL Normal [facility] Comment on above: Result Comment: The drugs N-Acetylcysteine and Metamizole may falsely depress this assay. Reference Range HDL <40 mg/dL Low HDL Cholesterol HDL >or= 60 mg/dL High HDL Cholesterol Performed By: #### L 500.4050, L500.4100 #### [facility] [address] [place], [address] Cholesterol in LDL [Mass/Vol] 140 mg/dL High 0-130 [facility] Comment on above: Performed By: #### L 500.4050, L500.4100 #### [facility] [address] [place], [address] Cholesterol in VLDL [Mass/Vol] 22 mg/dL Normal 5-40 [facility] Comment on above: Performed By: #### L 500.4050, L500.4100 #### [facility] [address] [place], [address] Triglyceride [Mass/Vol] 109 mg/dL Normal [facility] Comment on above: Result Comment: The drugs N-Acetylcysteine and Metamizole may falsely depress this assay. Serum Triglycerides Reference Interval Normal <150 mg/dL Borderline high 150 - 199 mg/dL High 200 - 499 mg/dL Very High > or = 500 mg/dL Performed By: #### L 500.4050, L500.4100 #### [facility] [address] [place], [address] PSA Total+%Freeon 08-09-2024 PSA, FREE 0.69 ng/mL Normal N/A [facility] Comment on above: Result Comment: Roch williams ECLIA methodology. Performed By: #### L 500.4050, L500.4100 #### [facility] [address] [place], [address] PSA, FREE % 24.6 Normal . [facility] Comment on above: Result Comment: The table below lists the probability of prostate cancer for men with non-suspicious VAL[place] results and total PSA between 4 and 10 ng/mL, by patient age (Julien et al, KIMBERLY 1998, 279:1542). % Free PSA 50-64 yr 65-75 yr 0.00-10.00% 56% 55% 10.01-15.00% 24% 35% 15.01-20.00% 17% 23% 20.01-25.00% 10% 20% >25.00% 5% 9% Please note: Julien et al did not make specific recommendations regarding the use of percent free PSA for any other population of men. Performed at: [address] [place] [id number] Financial Aid Director: Eddie Jackson PhD, Phone: [phone] Performed By: #### L 500.4050, L500.4100 #### [facility] [address] [place], [place], [address] PSA, TOTAL ULTR 2.800 ng/mL Normal 0.000-4.000 [facility] Comment on above: Result Comment: Michael GRANGER methodology. According to the [place] [employer], Serum PSA should decrease and remain at undetectable levels after radical prostatectomy. The AUA defines biochemical recurrence as an initial PSA value 0.200 ng/mL or greater followed by a subsequent confirmatory PSA value 0.200 ng/mL or greater. Values obtained with different assay methods or kits cannot be used interchangeably. Results cannot be interpreted as absolute evidence of the presence or absence of malignant disease. Performed By: #### L 500.4050, L500.4109 #### [facility] [address] [place], [place], [address] Urgent Care Visit Reporton 0 06-28-2024 Urgent Care Visit Report [facility] [address], [address] [place], [place] [address] OFFICE VISIT Date of Service: 06/28/24 MR#: [id number] Acct: [id number] Name: YVAN FLYNN Rep #: [id number] : 1955 Provider: DEBBIE Bernal Age/Sex: 68/M Location: [facility] [place] Status: Signed Intake Vital Signs 06/28/24 11:50 Height 6 ft 1 in Weight: 205 lb 4 oz BMI 27.1 BP 140/80 H Blood Pressure Location Lt brachial Position Sitting Respiration 16 Pulse 111 H Pulse Source NIBP Temp 98.7 F Temp Source Temporal Pulse Oximetry (%) 97 Oxygen Delivery Method room air Intake Visit Reasons: CONGESTION Chief Complaint: face pressure, drainage, cough 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 Is patient in pain?: No Allergies No Known Allergies Allergy (Verified 06/28/24 11:57) Medications ???Medication ???Instructions ???Recorded ???Confirmed ???Type metformin 500 mg tablet 500 mg PO TIDCM 02/06/17 06/28/24 History amoxicillin 875 mg-potassium 1 tab PO BID 7 days #14 tabs 06/28/24 06/28/24 Rx clavulanate 125 mg tablet dapagliflozin propanediol 10 mg 10 mg PO QDAY 06/28/24 06/28/24 History tablet (Farxiga) dulaglutide 0.75 mg/0.5 mL mg subcut 06/28/24 06/28/24 History subcutaneous pen injector (Trulicity) glipizide 10 mg tablet, extended 10 mg PO QDAY 06/28/24 06/28/24 History release 24 hr Have you fallen in the past year?: No Nurse's Note: face pressure, drainage, dry cough x 2.5 weeks. hx frequent sinus infections and states this is how it always starts. PFSH Social History Smoking Status: Never smoker HPI HPI Chief Complaint: face pressure, drainage, cough Details: YVAN FLYNN, is a 68 M who presents to the office today for evaluation of upper respiratory symptoms. Patient states that he has been experiencing facial pressure and congestion along with an intermittent dry cough over the past 2.5 weeks. Patient states that he recently returned from a trip to [place] about 1 week ago and thought he contracted a viral illness during travel. He states that despite watchful waiting his symptoms persist without much improvement and he feels as though his sinus pressure is worsening. Patient denies nasal discharge, fever, chills, SOB, and dyspnea. Patient denies contact with individuals with similar symptoms. Patient has not utilized any OTC treatment options for this issue at this time. ROS Const Constitutional: No chills or fever(s) ENT ENT: Positive for ear or mastoid pain, nasal congestion, sinus pressure, sinus pain and sore throat; No nasal discharge Resp Respiratory: Positive for cough; No chest congestion, excessive phlegm production, shortness of breath or wheezing Cardio Cardiology: No chest pain at rest, chest pain with exertion, dyspnea on exertion, irregular heart rhythm or palpitations Aller/Imm Allergy/Immunologic: No seasonal allergy symptoms or wheezing Exam Const General: cooperative and no acute distress HENMT Ears: external ears normal and TM's normal bilaterally Nose: mucous membranes and turbinates abnormal erythematous bilaterally and no nasal discharge noted Face and sinus: sinus tenderness frontal and maxillary Mouth: oral mucosae normal Throat: posterior oropharynx normal Eyes Conjunctivae: conjunctivae normal Sclera: sclerae normal Neck Lymphatic: no lymphadenopathy noted Resp Auscultation: Bilateral: Clear to Auscultation Cardio Rate: regular rate Rhythm: regular rhythm Heart Sounds: S1 normal and S2 normal Coding Level of Care Code New Pt Off vis,new,level 3 Patient Type New History Problem Focused Exam Problem Focused Medical Decision Making Low Complexity Diagnoses Subacute sinusitis, unspecified location J01.90 Sinusitis location: unspecified location Chronicity: subacute Assessment and Plan Assessment and Plan (1) Sinusitis: Status: Acute Qualifiers: Sinusitis location: unspecified location Chronicity: subacute Qualified Code(s): J01.90 - Acute sinusitis, unspecified Plan: Treat as below based on duration and exam in office due to potential bacterial etiology. Symptomatic care reviewed including use of OTC intranasal corticosteroid, antihistamine, and Vicks. F/u with PCP or in the [facility] with persistent or worsening symptoms despite management. Patient and his voiced understanding and agreement with plan. Medications: New amoxicillin-pot clavulanate 875-125 mg 1 TAB PO BID 7 days 14 tabs 0RF J32.9 - Chronic sinusitis, unspecified Clinical Quality Measures Falls Risk Screening/Assistive Devices Have you fallen in the past year?: No 06/28/24 1254 Date Collins Orellana Signature: Date (more content not included)... Normal [facility] Basophil percentageOrdered B y: Ahmet Becker on 09-22-2023 Amylase [Catalytic activity/Vol] 90 U/L 25-115 [facility] Bilirubin [Mass/Vol] 0.40 mg/dL 0.20-1.00 [facility] Comment on above: For patients on eltr ombopag therapy, use of Dimension Barbeau TBIL is not recommended. Chloride [Moles/Vol] 109 mmol/L 98-107 [facility] Cholesterol [Mass/Vol] 182 mg/dL <200 [facility] Comment on above: <200 mg/dL Desirable 200-240 mg/dL Borderline >240 mg/dL High Risk Glucose [Mass/Vol] 103 mg/dL 74-106 [facility] Comment on above: Fasting Glucose resu lt from 100 to 125 mg/dL suggests IMPAIRED HOMEOSTASIS per A.D.A. criteria. Potassium [Moles/Vol] 4.1 mmol/L 3.5-5.1 [facility] Protein [Mass/Vol] 7.4 g/dL 6.4-8.2 [facility] Sodium [Moles/Vol] 140 mmol/L 136-145 [facility] Triglyceride [Mass/Vol] 73 mg/dL <199 [facility] Comment on above: The drugs N-Acetylcy steine and Metamizole may falsely depress this assay.Serum Triglycerides Reference Interval Normal <150 mg/dL Borderline high 150 - 199 mg/dL High 200 - 499 mg/dL Very High > or = 500 mg/dL Laboratory - Chemistry and C hemistry - challengeOrdered By: Ahmet Becker on 09-22-2023 ALP [Catalytic activity/Vol] 54 U/L 45-117 [facility] ALT [Catalytic activity/Vol] 28 U/L 16-61 [facility] CO2 [Moles/Vol] 27.0 mmol/L 21.0-32.0 [facility] Globulin (S) [Mass/Vol] 3.7 g/dL 2.2-4.2 [facility] Lipase [Catalytic activity/Vol] 28 U/L 13-75 [facility] Comment on above: Please note:LIPASE r evised reference range effective 23. New Lipase methodology. Expected to produce lower values than the previous assay method. NEW Reference Range: 13 - 75 U/L Urea nitrogen/Creatinine [Mass ratio] 17.9 mg/mg 10-20 [facility] No Panel InformationOrdered By: Ahmet Becker on 09-22-2023 Estimated GFR (MDRD) Amer 75 mL/min >60 [facility] Comment on above: GFR Calc Estimated GFR (MDRD) Non-Af Amer 62 mL/min >60 [facility] Comment on above: Non- GFR Calc Prostate Specific Antigen Screen 4.05 ng/mL 0.00-4.00 [facility] Comment on above: This test was perfor med using the TPSA assay method for theKognitio chemistry system. Values obtained with differentassay methods cannot be used interchangably.When changing PSA assays in the course of monitoring apatient, additional sequential testing should be carriedout to confirm baseline values. Serum or plasma albumin matt urement (mass/volume)Ordered By: Ahmet Becker on 09-22-2023 Albumin [Mass/Vol] 3.7 g/dL 3.2-5.0 [facility] Serum or plasma albumin/glob ulin mass ratioOrdered By: Ahmet Becker on 09-22-2023 Albumin/Globulin [Mass ratio] 1.0 {ratio} 0.9-2.4 [facility] Serum or plasma calcium matt urement (mass/volume)Ordered By: Ahmet Becker on 09-22-2023 Calcium [Mass/Vol] 9.1 mg/dL 8.5-10.1 [facility] Serum or plasma cholesterol in HDL measurement (mass/volume)Ordered By: Ahmet Becker on 09-22-2023 Cholesterol in HDL [Mass/Vol] 51 mg/dL >40 [facility] Comment on above: The drugs N-Acetylcy steine and Metamizole may falsely depress this assay. Reference Range HDL <40 mg/dL Low HDL Cholesterol HDL >or= 60 mg/dL High HDL Cholesterol Serum or plasma cholesterol in VLDL measurement (mass/volume)Ordered By: Ahmet Becker on 09-22-2023 Cholesterol in VLDL [Mass/Vol] 15 mg/dL 5-40 [facility] Serum or plasma creatinine m easurement (mass/volume)Ordered By: Ahmet Becker on 09-22-2023 Creatinine [Mass/Vol] 1.23 mg/dL 0.70-1.30 [facility] Comment on above: The validity of the calculated GFR & GFRAA in patients over 70 years has not been determined. Clinical correlation is essential. Serum or plasma low density lipoprotein (LDL) cholesterol measurement (mass/volume)Ordered By: Ahmet Becker on 09-22-2023 Cholesterol in LDL [Mass/Vol] 116 mg/dL 0-130 [facility] Serum or plasma urea nitroge n measurement (mass/volume)Ordered By: Ahmet Becker on 09-22-2023 Urea nitrogen [Mass/Vol] 22 mg/dL 7-18 [facility] Thin prep Papanicolaou smear with manual screeningOrdered By: Ahmet Becker on 09-22-2023 Thin prep Papanicolaou smear with manual screening 20 U/L 15-37 [facility] Thin prep Papanicolaou smear with manual screening 4 5-15 [facility] Whole blood hemoglobin A1c/t otal hemoglobin ratio (mass fraction)Ordered By: Ahmet Becker on 09-22-2023 HbA1c (Bld) [Mass fraction] 6.1 % 3.8-5.6 [facility] Comment on above: Normal < 5.7 % Predi abetic 5.7 - 6.4 % Diabetic >or= 6.5 % Please note range changes. CREATININE, POC (AK,MR)on Creatinine [Mass/Vol] 1.00 mg/dL 0.60 - 1.30 mg/dL [facility] eGFR (POCT) [facility] CT ABD/PEL W IVCONon 023 CT ABD/PEL W IVCON * * *Final Report* * * DATE OF EXAM: Jun 28 2023 7:41AM [facility] 0530 - CT ABD/PEL W IVCON / PROCEDURE REASON: Left upper quadrant abdominal pain * * * * Physician Interpretation * * * * EXAMINATION: CT ABDOMEN AND PELVIS WITH IV CONTRAST CLINICAL HISTORY: Left upper quadrant pain TECHNIQUE: CT of the abdomen and pelvis was performed using standard technique, scanning from just above the dome of the diaphragm to the symphysis pubis. MQ: CTAP_3 Contrast: IV: 100 ml of Omnipaque 350 : ml of CT Radiation dose: Integrated Dose-length product (DLP) for this visit = 856 mGy*cm. CT Dose Reduction Employed: Automated exposure control (AEC) COMPARISON: A prior MRI from 11/16/2022 is available for comparison. RESULT: Lung bases: The visualized lung bases are clear. Liver: Normal liver parenchyma is noted. No focal hepatic mass is seen. The portal vein and hepatic veins are within normal limits. Bile ducts: No intra or extrahepatic bile duct dilatation is noted. Gallbladder: Cholelithiasis. Spleen: The spleen is of normal size and enhancement Pancreas: A 4 cm pancreatic tail cyst is noted as described on the recent MRI. This is consistent with a serous cystadenoma. The pancreas is otherwise unremarkable. Adrenal glands :The adrenal glands are normal in morphology. No discrete nodule is identified. Kidneys: Normal enhancement of the renal parenchyma is noted. No solid mass is identified. A nonobstructing 6 mm right renal stone is identified. There is no evidence of hydronephrosis or hydroureter. Abdominal aorta: The abdominal aorta is of normal caliber without evidence of dissection. A normal-appearing aortic bifurcation is present. Lymphadenopathy: There is no intra-abdominal, retroperitoneal, or inguinal lymphadenopathy. Ascites: No fluid collection is seen in the abdomen or pelvis. Urinary bladder: The urinary bladder is unremarkable without an intraluminal filling defect. No perivesical fat stranding is appreciated. Bowel: No dilated loops of small bowel are seen to suggest bowel obstruction. Appendix: Not identified. Osseous structures: No osteolytic or osteoblastic bone lesion is identified. No acute osseous abnormality is seen. IMPRESSION: 1. No evidence of acute intra-abdominal or intrapelvic pathology. 2. Cholelithiasis without evidence of acute cholecystitis. 3. Pancreatic cystic mass as described on the recent MRI of the abdomen. Sign Manufacturer: ERIC Transcribe Date/Time: Jun 30 2023 6:31P Dictated by : JAILENE SHRESTHA MD This examination was interpreted and the report reviewed and electronically signed by: JAILENE SHRESTHA MD on Jun 30 2023 6:36PM EST [id number] Normal [facility] 04-04-2023 [facility] Telephone (AGGENS1) -- YVAN FLYNN ([id number]) 1955 M Date Time Provider Department 04/04/23 SERGIO CELAYA AGGENS1 During your visit today, we recorded the following information about you: Robyn Sepulveda LPN 04/04/2023 10:30 AM Signed Called patient to discuss CT scan appointment scheduled for 06/04/23. Patient stated he is going to be on vacation and working, he would prefer to schedule the appointment himself. Patient given scheduling phone number and stated he would call to r/s CT scan and call our office to schedule follow up. Anders RIVERA Allergies As of Date: 04/04/2023 Noted Allergy Reaction ANIMAL DANDER 09/22/2022 16 - Unknown HOUSE DUST MITE 09/22/2022 16 - Unknown POLLENS EXTRACT 09/22/2022 16 - Unknown Date Reviewed: 11/24/2022 Reviewed by: Jenae Noyola RN - Fully Assessed Reason for Visit: Appointment [186] Prescriptions as of 04/04/2023 - [employer] MICHELL 14 DAY SENSOR kit as directed. - glipiZIDE XL (GLUCOTROL XL) 10 mg 24 hr tablet Take 10 mg by mouth once daily. - rosuvastatin (CRESTOR) 10 mg tablet Take 10 mg by mouth once daily. - montelukast (SINGULAIR) 10 mg tablet Take 10 mg by mouth daily at bedtime. - dapagliflozin (FARXIGA) 10 mg tablet Take by mouth daily with breakfast. - metFORMIN ER (GLUMETZA) 500 mg 24 hr tablet Take 500 mg by mouth three times daily. Problem List As Of Date 04/04/2023 Noted Resolved Diabetes (HCC) [E11.9] 09/22/2022 Hypercholesteremia [E78.00] 09/22/2022 Osteoarthritis of multiple joints [M15.9] 09/22/2022 Pancreatic mass [K86.89] 09/22/2022 Encounter Status:Closed by ROBYN ESPULVEDA on 04/04/23 Normal [facility] Basophil percentageOrdered B y: Dr. Becker on 02-28-2023 Chloride [Moles/Vol] 110 mmol/L 98-107 [facility] Cholesterol [Mass/Vol] 162 mg/dL <200 [facility] Comment on above: <200 mg/dL Desirable 200-240 mg/dL Borderline >240 mg/dL High Risk Glucose [Mass/Vol] 104 mg/dL 74-106 [facility] Comment on above: Fasting Glucose resu lt from 100 to 125 mg/dL suggests IMPAIRED HOMEOSTASIS per A.D.A. criteria. Potassium [Moles/Vol] 3.7 mmol/L 3.5-5.1 [facility] Sodium [Moles/Vol] 138 mmol/L 136-145 [facility] Triglyceride [Mass/Vol] 108 mg/dL <199 [facility] Comment on above: The drugs N-Acetylcy steine and Metamizole may falsely depress this assay.Serum Triglycerides Reference Interval Normal <150 mg/dL Borderline high 150 - 199 mg/dL High 200 - 499 mg/dL Very High > or = 500 mg/dL Laboratory - Chemistry and C hemistry - challengeOrdered By: Dr. Becker on 02-28-2023 CO2 [Moles/Vol] 24.0 mmol/L 21.0-32.0 [facility] Urea nitrogen/Creatinine [Mass ratio] 23.3 mg/mg 10-20 [facility] No Panel InformationOrdered By: Dr. Becker on 02-28-2023 Estimated GFR (MDRD) Amer 107 mL/min >60 [facility] Comment on above: GFR Calc Estimated GFR (MDRD) Non-Af Amer 88 mL/min >60 [facility] Comment on above: Non- GFR Calc Serum or plasma calcium matt urement (mass/volume)Ordered By: Dr. Becker on 02-28-2023 Calcium [Mass/Vol] 8.4 mg/dL 8.5-10.1 [facility] Serum or plasma cholesterol in HDL measurement (mass/volume)Ordered By: Dr. Becker on 02-28-2023 Cholesterol in HDL [Mass/Vol] 45 mg/dL >40 [facility] Comment on above: The drugs N-Acetylcy steine and Metamizole may falsely depress this assay. Reference Range HDL <40 mg/dL Low HDL Cholesterol HDL >or= 60 mg/dL High HDL Cholesterol Serum or plasma cholesterol in VLDL measurement (mass/volume)Ordered By: Dr. Becker on 02-28-2023 Cholesterol in VLDL [Mass/Vol] 22 mg/dL 5-40 [facility] Serum or plasma creatinine m easurement (mass/volume)Ordered By: Dr. Becker on 02-28-2023 Creatinine [Mass/Vol] 0.90 mg/dL 0.70-1.30 [facility] Comment on above: The validity of the calculated GFR & GFRAA in patients over 70 years has not been determined. Clinical correlation is essential. Serum or plasma low density lipoprotein (LDL) cholesterol measurement (mass/volume)Ordered By: Dr. Becker on 02-28-2023 Cholesterol in LDL [Mass/Vol] 95 mg/dL 0-130 [facility] Serum or plasma urea nitroge n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 Bilateral FAMILY HISTORY Problem Relation Age of Onset Arthritis Mother Arthritis Sister Heart disease Sister SOCIAL HISTORY: Social History Tobacco Use Smoking status: Never Smokeless tobacco: Never Vaping Use Vaping Use: Never used Substance Use Topics Alcohol use: Yes Comment: occ. Drug use: Never Prior to Admission medications as of 11/24/22 0848 Medication Sig Last Dose Taking glipiZIDE XL (GLUCOTROL XL) 10 mg 24 hr tablet Take 10 mg by mouth once daily. 11/23/2022 at 0600 Yes rosuvastatin (CRESTOR) 10 mg tablet Take 10 mg by mouth once daily. 11/23/2022 at 0600 Yes dapagliflozin (FARXIGA) 10 mg tablet Take by mouth daily with breakfast. 11/23/2022 at 0600 Yes metFORMIN ER (GLUMETZA) 500 mg 24 hr tablet Take 500 mg by mouth three times daily. 11/23/2022 at 0600 Yes MaginE 14 DAY SENSOR kit as directed. montelukast (SINGULAIR) 10 mg tablet Take 10 mg by mouth daily at bedtime. 11/22/2022 at 1800 No medication comments found. ALLERGIES Allergen Reactions Animal Dander Unknown House Dust Mite Unknown Pollens Extract Unknown REVIEW OF SYSTEMS: PAIN ASSESSMENT: General: Denies fever, chills, and unexpected weight change. Neuro: Denies dizziness and headaches. Respiratory: Denies SOB or productive cough Cardiovascular: Denies CP and palpitations. +HLD GI: see HPI : Denies dysuria. Endocrine: Thyroid conditions. +type 2 diabetes Hematology: Denies history of bleeding or clotting disorder. No known autoimmune disorders Musculoskeletal: Denies joint pain and swelling. Skin: Denies open sores and rashes. Objective PHYSICAL EXAM: VITALS: See nursing flow sheet General: NAD. Cooperative. Skin: Skin is warm, no rashes, and no open sores. HEENT: Normocephalic. Cardiovascular: Normal S1 & S2. RRR, No murmur. Lungs: CTA Bilaterally. No respiratory distress. Abdomen: Soft, nontender, non-distended. Bowel sounds normal in all four quadrants. Extremities: No edema. Neurological: Alert and oriented to person, place, and time. Pulses: radial pulses +2 Diagnostic tests reviewed for today's visit: Lab Value Units Date High Low HB No results within date range. HCT No results within date range. WBC No results within date range. PLT No results within date range. NA No results within date range. K No results within date range. GLUC No results within date range. BUN No results within date range. CREAT No results within date range. PTSEC No results within date range. INR No results within date range. APTT No results within date range. ALT No results within date range. AST No results within date range. TBILI No results within date range. TSH No results within date range. Lab Value Units Date High Low HCGQT No results within date range. UHCG No results within date range. HCG, BODY* No results within date range. Lab Value Units Date High Low ABORHD No results within date range. ABSCREEN No results within date range. Assessment/Plan ANESTHESIA FINDINGS: Significant Anesthesia Considerations: None Patient has the following medical conditions which may affect sergo-operative course Problem List Items Addressed This Visit Cardiovascular Hypercholesteremia Current Assessment & Plan statin Endocrinology Diabetes (HCC) Current Assessment & Plan Type 2, oral agents Other Visit Diagnoses Preop examination [Z01.818 (ICD-10-CM)] - Primary Pancreatic cyst Relevant Orders EGD - THERAPEUTIC, EUS, OR TUBE INTERVENTIONS PLAN Procedure Diagnosis: Pancreatic cyst [K86.2] Planned Procedure: EGD Planned Anesthetic: MAC SIGNATURE: Justine Aleman APRN.CNP PATIENT NAME: Yvan Flynn DATE: November 24, 2022 TIME: 8:15 AM PAGER/CONTACT #: ' documented in this encounterClinton [facility] Hospital01-10-2023 NoteHNO ID: [id number] Author: Sergio Celaya MD Service: ? Author Type: Physician Type: Progress Notes Filed: 11/21/2022 10:09 AM Note Text: AMBULATORY TELEPHONE VISIT Yvan Flynn has consented to this telephone encounter. Persons Present: patient Chief Complaint/Reason: MRI results HPI: Doing well. No abdominal complaints. Scheduled for his endoscopic ultrasound this Sunday. Data Reviewed: Most recent imaging Assessment: (K86.2) Pancreatic cyst (primary encounter diagnosis) Reviewed his imaging. This looks like he likely has a serous cystadenoma in the pancreatic tail. He also has some smaller cyst in the tail of his pancreas as well. I had a long discussion with him and told him that he needs an endoscopic ultrasound to ensure that this is a serous cystadenoma. If this appears to be mucinous he would benefit from surgical resection. I will follow-up with him after his endoscopic ultrasound this Sunday. Plan: EUS this Sunday by Dr. Roman Total Time Spent: 11 minutes Sergio Celaya [facility]01-10-2023 History of Present illness Narrative* Sergio Celaya MD - 11/21/2022 9:00 AM EST AMBULATORY TELEPHONE VISIT Yvan Flynn has consented to this telephone encounter. Persons Present: patient Chief Complaint/Reason: MRI results HPI: Doing well. No abdominal complaints. Scheduled for his endoscopic ultrasound this Sunday. Data Reviewed: Most recent imaging Assessment: (K86.2) Pancreatic cyst (primary encounter diagnosis) Reviewed his imaging. This looks like he likely has a serous cystadenoma in the pancreatic tail. Rach has some smaller cyst in the tail of his pancreas as well. I had a long discussion with him and told him that he needs an endoscopic ultrasound to ensure that this is a serous cystadenoma. If this appears to be mucinous he would benefit from surgical resection. I will follow-up with him after his endoscopic ultrasound this Sunday. Plan: EUS this Sunday by Dr. Roman Total Time Spent: 11 minutes Sergio Celaya MD documented in this encounterClinton [facility]01-05-2023 NoteHNO ID: [id number] Author: RT Florentino(Lisa) Service: ? Author Type: Technologist Type: Progress Notes Filed: 11/16/2022 10:02 AM Note Text: Radiology Service Progress Note DATE OF SERVICE: November 16, 2022 TIME: 10:01 AM PATIENT IDENTITY VERIFICATION COMPLETED USING TWO (2) STANDARD IDENTIFIERS: Name and Date of confirmed by patient verbally. FALL SCREENING: Has the patient had 2 falls in the last year or 1 fall with injury or currently using an Ambulatory Assistive Device (Walker, Cane, Wheelchair, Crutches, etc.)? No PATIENT GENDER DATA: Male PATIENT RELEVANT IMPLANT DATA REVIEWED: Yes ALLERGIES: Reviewed and unchanged CONTRAST ALLERGY: NO. EXAM: MRI - CONTRAST TYPE: GROUP II PERIPHERAL IV DATA: Ambulatory: A peripheral IV was started in the Left antecubital site with a Angio cath: 22 gauge. RADIOLOGY DEPARTMENT: MR; Exam(s) Completed: Body: Pancreas/Biliary SIGNATURE: Odalis Frausto, RT(R) PATIENT NAME: Yvan Flynn DATE: November 16, 2022 TIME: 10:01 [facility]01-03-2023 NoteHNO ID: [id number] Author: Sergio Celaya MD Service: ? Author Type: Physician Type: Progress Notes Filed: 11/14/2022 5:35 AM Note Text: Patient referred by: No referring provider defined for this encounter. HPI: This is a new patient consult from Dr. Hutchison ref. provider found. 67-year-old male who [place] and [place] a fall with rib fractures. He was found to have a lesion in his pancreas and is here for follow-up. He has no fevers or chills. He has never been told of a lesion in his pancreas before. He has never had pancreatitis. He has no family history of malignancy. . PAST MEDICAL HISTORY Diagnosis Date Diabetes (HCC) Hypercholesteremia Osteoarthritis of multiple joints Pancreatic mass PAST SURGICAL HISTORY Procedure Laterality Date SCREENING COLONSCOPY NOT HIGH RISK 2006 TONSILLECTOMY AND ADENOIDECTOMY HX TOTAL KNEE REPLACEMENT Bilateral FAMILY HISTORY Problem Relation Age of Onset Arthritis Mother Arthritis Sister Heart disease Sister Social History Tobacco Use Smoking status: Never Smokeless tobacco: Never Substance Use Topics Alcohol use: Yes Comment: occ. Drug use: Never Current Outpatient Medications Medication Sig MaginE 14 DAY SENSOR kit as directed. glipiZIDE XL (GLUCOTROL XL) 10 mg 24 hr tablet Take 10 mg by mouth once daily. montelukast (SINGULAIR) 10 mg tablet Take 10 mg by mouth daily at bedtime. dapagliflozin (FARXIGA) 10 mg tablet Take by mouth daily with breakfast. metFORMIN ER (GLUMETZA) 500 mg 24 hr tablet Take 500 mg by mouth three times daily. rosuvastatin (CRESTOR) 10 mg tablet Take 10 mg by mouth once daily. (Patient not taking: Reported on 10/10/2022) No current facility-administered medications for this visit. ALLERGIES Allergen Reactions Animal Dander Unknown House Dust Mite Unknown Pollens Extract Unknown REVIEW OF SYSTEMS: GENERAL: No weight loss, malaise or fevers GI: Negative for abdominal pain, nausea , vomiting, diarrhea, constipation, and signs of jaundice Positive for none PHYSICAL EXAM: BP 134/79 Pulse 104 Ht 6' 1 (1.85m) Wt 212 lb (96.2kg) SpO2 96% BMI 27.98 kg/(m2). GENERAL APPEARANCE: Well appearing, alert, in no acute distress, well-hydrated, well nourished.. ABDOMEN: Normal abdominal exam, Abdomen soft, non-tender. Bowel sounds normal. No masses, organomegaly NEURO: Alert, oriented x3, no asterixis, speech clear and articulate, and SHORT HEART: regular rate and rhythm, without murmur LUNGS: clear to auscultation, without rales or wheeze, good air exchange DATA: Diagnostic tests reviewed for today's visit: Most recent labs Most recent imaging I spent a total of 45 minutes on the date of the service which included preparing to see the patient, [id number] patient care, completing clinical documentation, obtaining and/or reviewing separately obtained history, performing a medically appropriate examination, counseling and educating the patient/family/caregiver, ordering medications, tests, or procedures, and communicating results to the patient/family/caregiver. . Greater than 50% of the direct patient contact time was spent in counseling or coordination of care. Medical Decision Making: Medical Decision Making Level: 1 - N/A ASSESSMENT / PLAN: 1. Pancreatic cyst . CT [place] from [place] of [place]. He has evidence of a large cyst in the tail of his pancreas. I do not see any evidence of pancreatic ductal dilatation. I long discussion and told him that this is likely a possible IPMN. I like to feed every endoscopic ultrasound to assess this. He is going on vacation this month so we will hold off till next month to get the MRI which is reasonable. I will obtain an MRI and endoscopic ultrasound and follow-up with him after this. - MRI ABDOMEN WO/W IVCON; Future - iv contrast (will be provided with radiology test); MRI ABDOMEN Inject, intravenously, once for 1 dose. No IV access, insert saline lock prior to the beginning of sedation, infusion, injection of imaging exam. Discontinue saline lock post exam. If Pt. has a central line or IVAD, may access for administration according to line specific nursing protocol. Once exam is complete flush line and de-access according to line specific nursing protocol in the MR contrast administration guidelines link. Dispense: 1 Each; Refill: 0 Sergio Celaya MD Please Note: This office note has been created using Help/Systems, a speech recognition software program, and may contain errors including punctuation, grammar, spelling, gender, and inappropriate words or phrases that pertain to the sytem.[facility]01-03-2023 History of Present illness Narrative* Sergio Celaya MD - 11/14/2022 5:32 AM EST Patient referred by: No referring provider defined for this encounter. HPI: This is a new patient consult from Dr. Hutchison ref. provider found. 67-[facility] with rib fractures. He was found to have a lesion in his pancreasand is here for follow-up. He has no fevers or chills. He has never been told of a lesion in his pancreas before. He has never had pancreatitis. He has no family history of malignancy. . PAST MEDICAL HISTORY Diagnosis Date Diabetes (HCC) Hypercholesteremia Osteoarthritis of multiple joints Pancreatic mass PAST SURGICAL HISTORY Procedure Laterality Date SCREENING COLONSCOPY NOT HIGH RISK 2006 TONSILLECTOMY AND ADENOIDECTOMY HX TOTAL KNEE REPLACEMENT Bilateral FAMILY HISTORY Problem Relation Age of Onset Arthritis Mother Arthritis Sister Heart disease Sister Social History Tobacco Use Smoking status: Never Smokeless tobacco: Never Substance Use Topics Alcohol use: Yes Comment: occ. Drug use: Never Current Outpatient Medications Medication Sig MaginE 14 DAY SENSOR kit as directed. glipiZIDE XL (GLUCOTROL XL) 10 mg 24 hr tablet Take 10 mg by mouth once daily. montelukast (SINGULAIR) 10 mg tablet Take 10 mg by mouth daily at bedtime. dapagliflozin (FARXIGA) 10 mg tablet Take by mouth daily with breakfast. metFORMIN ER (GLUMETZA) 500 mg 24 hr tablet Take 500 mg by mouth three times daily. rosuvastatin (CRESTOR) 10 mg tablet Take 10 mg by mouth once daily. (Patient not taking: Reported on 10/10/2022) No current facility-administered medications for this visit. ALLERGIES Allergen Reactions Animal Dander Unknown House Dust Mite Unknown Pollens Extract Unknown REVIEW OF SYSTEMS: GENERAL: No weight loss, malaise or fevers GI: Negative for abdominal pain, nausea , vomiting, diarrhea, constipation, and signs of jaundice Positive for none PHYSICAL EXAM: BP 134/79 Pulse 104 Ht 6' 1 (1.85m) Wt 212 lb (96.2kg) SpO2 96% BMI 27.98 kg/(m^2). GENERAL APPEARANCE: Well appearing, alert, in no acute distress, well-hydrated, well nourished.. ABDOMEN: Normal abdominal exam, Abdomen soft, non-tender. Bowel sounds normal. No masses, organomegaly NEURO: Alert, oriented x3, no asterixis, speech clear and articulate, and SHORT HEART: regular rate and rhythm, without murmur LUNGS: clear to auscultation, without rales or wheeze, good air exchange DATA: Diagnostic tests reviewed for today's visit: Most recent labs Most recent imaging I spent a total of 45 minutes on the date of the service which included preparing to see the patient, [id number] patient care, completing clinical documentation, obtaining and/or reviewing separately obtained history, performing a medically appropriate examination, counseling and educating the pat ient/family/caregiver, ordering medications, tests, or procedures, and communicating results to thepatient/family/caregiver. . Greater than 50% of the direct patient contact time was spent in counseling or coordination of care. Medical Decision Making: Medical Decision Making Level: 1 - N/A ASSESSMENT / PLAN: 1. Pancreatic cyst . [place] He has evidence of a large cyst in the tail of his pancreas. I do not see any evidence of pancreatic ductal dilatation. I long discussion and told him that this is likelya possible IPMN. I like to feed every endoscopic ultrasound to assess this. He is going on vacationthis month so we will hold off till next month to get the MRI which is reasonable. I will obtain anMRI and endoscopic ultrasound and follow-up with him after this. - MRI ABDOMEN WO/W IVCON; Future - iv contrast (will be provided with radiology test); MRI ABDOMEN Inject, intravenously, once for 1dose. No IV access, insert saline lock prior to the beginning of sedation, infusion, injection of imaging exam. Discontinue saline lock post exam. If Pt. has a central line or IVAD, may access for administration according to line specific nursing protocol. Once exam is complete flush line and de-access according to line specific nursing protocol in the MR contrast administration guidelines link. Dispense: 1 Each; Refill: 0 Sergio Celaya MD Please Note: This office note has been created using [employer], a speech recognition software program, and may contain errors including punctuation, grammar, spelling, gender, and inappropriate words or phrases that pertain to the sytem. [facility] Instructions* Patient Instructions* Sergio Celaya MD - 10/10/2022 3:58 PM EST Office will call with date and time for MRI [facility] noteNo assessment information availableWMercy Health St. [facility] Work Phone: Evaluation note* Diagnosis Pancreatic cyst- Primary Cyst and pseudocyst of pancreas [facility] [place] [facility]* Diagnosis Anxiety neurosis- Primary Anxiety state, unspecified [facility] [place] [facility]* Diagnosis Pancreatic cyst- Primary Cyst and pseudocyst of pancreas [facility] [place] [facility]* Diagnosis Pancreatic cyst- Primary Cyst and pseudocyst of pancreas [facility] [place] [facility]* Diagnosis Preop examination [Z01.818 (ICD-10-CM)]- Primary Preoperative examination, unspecified Pancreatic cyst Cyst and pseudocyst of pancreas Type 2 diabetes mellitus with other specified complication, unspecified whether long-term insulin use (HCC) Hypercholesteremia Pure hypercholesterolemia * Assessment & Plan Note - Justine Aleman APRN.CNP - 11/24/2022 8:21 AM EST Associated Problem(s): Hypercholesteremia statin * Assessment & Plan Note - Justine Aleman APRN.CNP - 11/24/2022 8:20 AM EST Associated Problem(s): Diabetes (HCC) Type 2, oral agents [facility] [place] [facility]* Diagnosis Left upper quadrant abdominal pain- Primary [facility] Diagnosis Left upper quadrant abdominal pain documented in this encounter [facility] for referral (narrative)* Outpatient Procedure (Routine) - Authorized Specialty Diagnoses / Procedures Referred By Contac t Referred To Contact [facility] Diagnoses Pancreatic cyst Procedures EGD - THERAPEUTIC, EUS, OR TUBE INTERVENTIONS EGD INTRMURAL US NEEDLE ASPIRATE/BIOPSY ESOPHAGS Alee Roman MD [address] [place] [address] [address] Referral ID Status Reason Start Date Expiration Date Visits Requested Visits Authorized [id number] Authorized Auto-Generat ed Referral 11/24/2022 10/20/2023 1 1 [facility] for referral (narrative)* Outpatient Procedure (Routine) - Closed Specialty Diagnoses / Procedures Referred By Contac t Referred To Contact [facility] Diagnoses Pancreatic cyst Procedures EGD - THERAPEUTIC, EUS, OR TUBE INTERVENTIONS EGD INTRMURAL US NEEDLE ASPIRATE/BIOPSY ESOPHAGS Alee Roman MD [address] [place] [address] [address] Referral ID Status Reason Start Date Expiration Date V isits Requested Visits Authorized [id number] Closed Auto-Generate d Referral 11/24/2022 10/20/2023 1 1 [facility] for referral (narrative)No reason for referral information availableWMercy Health St[facility] Work Phone: Reason for visit Narrative* Outpatient Procedure (Routine) - Closed Specialty Diagnoses / Procedures Referred By Contac t Referred To Contact [facility] Diagnoses Pancreatic cyst Procedures EGD - THERAPEUTIC, EUS, OR TUBE INTERVENTIONS EGD INTRMURAL US NEEDLE ASPIRATE/BIOPSY ESOPHAGS Alee Roman MD [address] [place] [address] [address] Referral ID Status Reason Start Date Expiration Date V isits Requested Visits Authorized [id number] Closed Auto-Generate d Referral 11/24/2022 10/20/2023 1 1 [facility] Summary Purpose Family History No Family History Records FoundNo Family History Records FoundNo Family History Records FoundNo Family History Records FoundNo Family History Records Found Advance Directives Advance Directive Response Recorded Date/ Time Advance Directives No April 19 6 11:28am Living Will No February 06, 2017 6:51am Power of Medical Operations Supervisor No February 06 6:51am Advance Directive Response Recorded Date/ Time Advance Directives No April 19 6 12:28pm Living Will No February 06, 2017 7:51am Power of Medical Operations Supervisor No February 06 7:51am Advance Directive Response Recorded Date/ Time Advance Directives No March 14, 2025 10:32am Chief Complaint and Reason for Visit Chief Complaint Admit Date CONCERN FOR POISON LUIS March 14, 2025 10: 51am E-ORDER April 09, 2025 7:25a m Reason for Visit Admit Date Cellulitis March 14, 2025 10:51a m Impetigo March 14, 2025 10:51a m Chief Complaint PANCREATIC MASS Chief Complaint Admit Date CONCERN FOR POISON LUIS March 14, 2025 10: 51am Reason for Visit Admit Date Cellulitis March 14, 2025 10:51a m Impetigo March 14, 2025 10:51a m Chief Complaint Admit Date CONCERN FOR POISON LUIS March 14, 2025 10: 51am E-ORDER April 09, 2025 7:25a m Reason for Referral Specialty Diagnoses / Procedures Referred By Contac t Referred To Contact [facility] Diagnoses Pancreatic cyst Procedures MRI ABDOMEN WO/W IVCON MRI ABDOMEN W/O & W/CONTRAST MATERIAL Sergio Celaya MD 1 [facility] [employer] [place] [address] [place] [id number] Mr Imaging Referral ID Status Reason Start Date Expiration Date Visits Requested Visits Authorized [id number] Authorized Auto-Generat ed Referral 2 11/25/2022 1 1 Specialty Diagnoses / Procedures Referred By Landen t Referred To Contact CT IMAGING Diagnoses Left upper quadrant abdominal pain Procedures CT ABD/PEL W IVCON CT ABD & PELVIS W/CONTRAST Sergio Celaya MD [address] [place] [address] Ct Imaging Referral ID Status Reason Start Date Expiration Date Visits Requested Visits Authorized [id number] Pending Review Auto-Generat ed Referral 06/04/2023 01/04/2024 1 1 Medications Administered Section Inactive Administered Medications - up to 3 most recent administrations Medication Order MAR Action Action Date Dose Rate Site lactated ringers iv infusion 5-30 mL/hr, INTRAVENOUS, CONTINUOUS, Starting on Sun11/24/22 at 1000, Until Sun11/24/22 at 1059, Preprocedure New Bag/Syringe/Bottle 11/24/2022 9:45 AM EST 30 mL/hr 30 mL/hr Additional Source Comments (unrecognized sect ion and content) No Status Records FoundNo Status Records FoundNo Status Records FoundNo Status Records FoundNo Status Records Found INFORMATION SOURCE (unrecogn ized section and content) DATE CREATED AUTHOR 06/21/2021 [facility] DATE CREATED AUTHOR AUTHOR'S ORGANIZ ATION 11/16/2022 [facility] DATE CREATED AUTHOR AUTHOR'S ORGANIZ ATION 07/01/2023 [facility] DATE CREATED AUTHOR AUTHOR'S ORGANIZ ATION 03/29/2025 [facility] DATE CREATED AUTHOR AUTHOR'S ORGANIZ ATION 04/15/2025 [facility] Goals (unrecognized section and content) Goals may be documented in a n alternate sectionGoals may be documented in an alternate sectionGoals may be documented in an alternate sectionGoals may be documented in an alternate sectionGoals may be documented in an alternate section Source Comments (unrecognize d section and content) In the event this informatio n is protected by the Federal Confidentiality of Alcohol and Drug Abuse Patient Records regulations: The Federal rules restrict any use of the information to criminally investigate or prosecute any alcohol or drug abuse patient.[facility] HospitalIn the event this information is protected by the Federal Confidentiality of Alcohol and Drug Abuse Patient Records regulations: The Federal rules restrict any use of the information to criminally investigate or prosecute any alcohol or drug abuse patient.[facility] HospitalIn the event this information is protected by the Federal Confidentiality of Alcohol and Drug Abuse Patient Records regulations: The Federal rules restrict any use of the information to criminally investigate or prosecute any alcohol or drug abuse patient.[facility] HospitalIn the event this information is protected by the Federal Confidentiality of Alcohol and Drug Abuse Patient Records regulations: The Federal rules restrict any use of the information to criminally investigate or prosecute any alcohol or drug abuse patient.[facility] HospitalIn the event this information is protected by the Federal Confidentiality of Alcohol and Drug Abuse Patient Records regulations: The Federal rules restrict any use of the information to criminally investigate or prosecute any alcohol or drug abuse patient.[facility] HospitalIn the event this information is protected by the Federal Confidentiality of Alcohol and Drug Abuse Patient Records regulations: The Federal rules restrict any use of the information to criminally investigate or prosecute any alcohol or drug abuse patient.[facility] HospitalIn the event this information is protected by the Federal Confidentiality of Alcohol and Drug Abuse Patient Records regulations: The Federal rules restrict any use of the information to criminally investigate or prosecute any alcohol or drug abuse patient.[facility] Care Teams (unrecognized sec tion and content) 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 Start Date End Date Ahmet Becker MD [address] [place] [address] [address] [place] [address] PCP - General Family Medicine 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 Start Date End Date Ahmet Becker MD [address] [place] [address] [address] [place] [id number] PCP - General Family Medicine 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 Start Date End Date Ahmet Becker MD [address] [place] [address] [address] [place] [id number] PCP - General 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 Donovan Fang MD Family Provider Active Dr. Ahmet Becker MD Primary Care Provider Active Team Status: Inactive Member Role Status Dates Dr. 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 Ahmet Becker MD Primary Care Provider, Attending Provider Active Team Status: Inactive Member Role Status Dates Dr. Ahmet Becker MD Primary Care Provider Active Start: March 14, 2025 End: March 14, 2025 Dr. Ahmet Bceker MD Referring Provider Active Start: March 14, 2025 End: March 14, 2025 DAVID Montgomery Attending Provider Active Start: March 14, 2025 End: March 14, 2025 Team Status: Inactive Member Role Status Dates Dr. Ahmet Becker MD Primary Care Provider Active Start: March 16, 2025 End: March 16, 2025 DAVID Montgomery Attending Provider Active Start: March 16, 2025 End: March 16, 2025 Team Status: Inactive Member Role Status Dates Dr. Ahmet Becker MD Primary Care Provider Active Start: April 09, 2025 End: April 09, 2025 Dr. Ahmet Becker MD Attending Provider Active Start: April 09, 2025 End: April 09, 2025 Dr. Ahmet Becker MD Referring Provider Active Start: April 09, 2025 End: April 09, 2025 Reason for Visit (unrecogniz ed section and content) Reason Comments New Patient Evaluation Mr. Flynn is here today for a pancreatic mass. Reason Comments Pancreatic Mass Specialty Diagnoses / Procedures Referred By Landen murcia Referred To Contact CT IMAGING Diagnoses Left upper quadrant abdominal pain Procedures CT ABD/PEL W IVCON CT ABD & PELVIS W/CONTRAST Sergio Celaya MD 1 [facility] [address] [place] [address] [place] [id number] Referral ID Status Reason Start Date Expiration Date V isits Requested Visits Authorized [id number] Closed Auto-Generate d Referral 05/25/2023 06/29/2023 1 1 FOR RECORDS PERTAINING TO PATIENTS WHO ARE OR HAVE BEEN ENROLLED IN A CHEMICAL DEPENDENCY/SUBSTANCEABUSE PROGRAM, SOME INFORMATION MAY BE OMITTED. This clinical summary was aggregated from multiple sources. Caution should be exercised in using it in the provision of clinical care. This summary normalizes information from multiple sources, and as a consequence, information in this document may materially change the coding, format and clinical context of patient data. In addition, data may be omitted in some cases. CLINICAL DECISIONS SHOULD BE BASED ON THE PRIMARY CLINICAL RECORDS. [employer] provides no warranty or guarantee of the accuracy or completeness of information in this document.
[2025-10-06 10:35] LABS: AST(SGOT) 27 U/L (<=37); Alanine Aminotransfer ALT/SGPT 36 U/L (<=46); Albumin, Serum 4.0 g/dL (3.4-4.8); Alkaline Phosphatase 62 U/L (40-129); Anion Gap 11 (5-15); BUN 24 mg/dL (4-19); BUN/Creat Ratio 25.3 RATIO (10-20); Calcium,Total 9.0 mg/dL (7.6-11.0); Carbon Dioxide 25.3 mmol/L (21.0-32.0); Chloride 105 mmol/L (98-108); Cholesterol 166 mg/dL (<=200); Globulin 2.7 g/dL (2.2-4.2); Glucose 81 mg/dL (70-99); Low Density Lipoprotein Calc. 109 mg/dL; PSA,Total - Annual Screen 3.89 ng/mL (0.02-4.00); Potassium 4.1 mmol/L (3.3-5.1); Triglycerides 104 mg/dL; Very Low Density Lipoprotein 21 mg/dL (5-40); cholesterol:hdl ratio screen 4.41
== END | disposition home or self-care (01) ==
LOC: MTLAB 07:36
PROVIDERS: PCP Family Medicine; Referring Provider Family Medicine; Visit Provider Family Medicine
DX: Z00.00 Encounter for general adult medical examination without abnormal findings (principal); E78.00 Pure hypercholesterolemia, unspecified
CPT/HCPCS: 36415; 80053; 80061; 83036; 84153; G0103